=== PATIENT | female | born 1935 | race Asian ===

== ENCOUNTER → 2020-09-28 11:20 | Outpatient (CLI) | payer MEDICARE, OTHER, SELFPAY ==
[2020-09-28 12:23] LABS: BUN Creatinine Ratio 21.7 (6-22); Blood Urea Nitrogen 18 mg/dL (7-17); Calcium 9.8 mg/dL (8.4-10.2); Carbon Dioxide 26 mmol/L (22-32); Chloride 98 mmol/L (98-107); Estimated Glomerular Filt Rate > 60.0 mL/min (>60); Glucose 114 mg/dL (80-110); HEMOLYSIS < 15 (0-50); Potassium 4.5 mmol/L (3.4-5.1); Sodium 133 mmol/L (137-145)
== END ==
PROVIDERS: Referring Provider Internal Medicine Cardiovascular Disease; Visit Provider Internal Medicine Cardiovascular Disease
DX: I10 Essential (primary) hypertension (principal)
CPT/HCPCS: 36415; 80048

== ENCOUNTER 2024-07-23 10:40 | Emergency (ER) | payer MEDICARE, OTHER, SELFPAY ==
[2024-07-23] VITALS (19 sets, daily range): BP systolic 140–167; BP diastolic 56–72; PULSE 87–93; RESP 14–22; TEMP 36.9–37.1; O2SAT 92–100; BMI 24.5
--- NOTE | 2024-07-23 10:49 | ED_ITS ---
HPI - General Adult General Chief complaint: Fall Stated complaint: Found on the floor maybe 5-8 hours Time Seen by Provider: 07/23/24 10:47 History of Present Illness HPI narrative: 88-year-old female comes into the ED from home with family for evaluation of unwitnessed fall. Patient with a past medical history of hypertension. According to family patient was found in the floor of the bathroom has been down on the floor for approximately minimum of 5 hours, they state that she was complaining of diffuse weakness over the past few days, states that she normally uses a walker intermittently, however she has been unstable on her feet more often and has been trying to get her to use her walker more frequently. Time of evaluation patient is A&O x4 moving all 4 extremities not complaining of any symptoms, however she states that she does not remember how she got onto the bathroom floor. She has not complaining of any injuries or pain. Not on any blood thinners. Related Data Allergies Allergy/AdvReac Type Severity Reaction Status Date / Time Penicillins Allergy Verified 07/23/24 10:51 Review of Systems Review of Systems Narrative: General: Positive generalized weakness, ground level fall, Denies fever, chills, weight loss HEENT: Denies headache, eye drainage, eye irritation, head trauma, sore throat, voice change Cardiovascular: Denies any chest pain, palpitations, shortness of breath, tachycardia Respiratory: Denies any shortness of breath, cough, wheeze, stridor GI/: Denies any abdominal pain, nausea, vomiting, diarrhea, bright red blood per rectum, melanotic stools, urinary frequency, urinary retention, dysuria, hematuria MSK: Denies any joint pain, muscle pains, swelling Skin: Denies any rashes, lesions, discoloration Neuro: Positive lightheadedness, Denies any headache, fainting, weakness Psych: Denies SI/HI Patient History Social History Smoking Status: Unknown if ever smoked Exam Narrative Exam Narrative: General: Cooperative, comfortable, well-developed, not in acute distress HEENT: Normocephalic, atraumatic, PERRLA, normal sclera, eyelids normal, Neck: Active full range of motion, atraumatic Chest: Normal to inspection, negative crepitus, no overlying erythema ecchymosis Respiratory: Normal respiratory effort, not in acute respiratory distress, clear to auscultation bilaterally negative cough, wheeze, tachypnea, rhonchi, rales Cardiology: Regular rate rhythm negative gallop, murmur, rubs GI/: Normal to inspection, soft, nonrigid, no tenderness to palpation, exam deferred MSK: Full range of active range of motion of all 4 extremities, atraumatic, no tenderness to palpation of any bony prominences Skin: No rashes lesions noted Neuro: Alert awake oriented x3, moves all 4 extremities spontaneously, cranial nerves intact, able to answer all questions appropriately follows commands appropriately, NIH of 0 Psych: Cooperative, negative suicidal or homicidal ideations Initial Vital Signs Initial Vital Signs: Vital Signs Temperature 98.7 F 07/23/24 10:41 Pulse Rate 91 H 07/23/24 10:41 Respiratory Rate 14 07/23/24 10:41 Blood Pressure 146/67 H 07/23/24 10:41 Pulse Oximetry 94 07/23/24 10:41 Oxygen Delivery Method Room Air 07/23/24 10:41 Course Orders Ordered: ED Orders 07/23/24 10:49 XR chest 1V Stat EKG-12 Lead Stat 07/23/24 10:55 CK [Creatine Kinase] Stat Complete Blood Count AUTO DIFF Stat Comprehensive Metabolic Panel Stat Lactate (Lactic Acid) Stat Lipase Stat MAG [Magnesium] Stat PTT Partial Thromboplastin Karthikeyan Stat Prothrombin Time INR Stat Troponin & CK Cardiac Panel Stat 07/23/24 10:57 CT angio head and neck Stat CT head/brain wo con Stat 07/23/24 11:21 Urine Microscopic Stat 07/23/24 11:26 Covid-19 + FLU A/B + RSV - PCR Stat 07/23/24 13:15 Trop I [Troponin I] Routine Discontinued Medications Sodium Chloride (Normal Saline 0.9%) 1,000 mls @ 1,000 mls/hr IV BOLUS ONE Stop: 07/23/24 12:20 Last Infusion: 07/23/24 12:51 Dose: Infused Documented By: Admin: 07/23/24 11:39 Dose: 1,000 mls/hr Documented By: BERONICA Vital Signs Vital signs: Vital Signs - 8 hr 07/23/24 10:41 07/23/24 10:48 07/23/24 10:48 Temperature 98.7 F Pulse Rate 91 H 89 Pulse Rate [Orthostatic Lying] Pulse Rate [Orthostatic Sitting] Pulse Rate [Orthostatic Standing] Respiratory Rate 14 Blood Pressure 146/67 H 146/67 H Blood Pressure [Orthostatic Lying] Blood Pressure [Orthostatic Sitting] Blood Pressure [Orthostatic Standing] Pulse Oximetry 94 99 Oxygen Delivery Method Room Air 07/23/24 11:00 07/23/24 11:00 07/23/24 11:25 Temperature Pulse Rate 87 Pulse Rate [Orthostatic Lying] Pulse Rate [Orthostatic Sitting] Pulse Rate [Orthostatic Standing] Respiratory Rate 18 Blood Pressure 141/57 H 167/72 H Blood Pressure [Orthostatic Lying] Blood Pressure [Orthostatic Sitting] Blood Pressure [Orthostatic Standing] Pulse Oximetry 100 Oxygen Delivery Method 07/23/24 11:25 07/23/24 11:30 07/23/24 11:30 Temperature Pulse Rate 91 H 87 Pulse Rate [Orthostatic Lying] Pulse Rate [Orthostatic Sitting] Pulse Rate [Orthostatic Standing] Respiratory Rate 16 17 Blood Pressure 148/68 H Blood Pressure [Orthostatic Lying] Blood Pressure [Orthostatic Sitting] Blood Pressure [Orthostatic Standing] Pulse Oximetry 99 99 Oxygen Delivery Method 07/23/24 12:02 07/23/24 12:04 07/23/24 12:04 Temperature Pulse Rate 90 91 H Pulse Rate [Orthostatic Lying] Pulse Rate [Orthostatic Sitting] Pulse Rate [Orthostatic Standing] Respiratory Rate 17 Blood Pressure 148/66 H Blood Pressure [Orthostatic Lying] Blood Pressure [Orthostatic Sitting] Blood Pressure [Orthostatic Standing] Pulse Oximetry 92 97 Oxygen Delivery Method 07/23/24 12:30 07/23/24 13:16 07/23/24 13:17 Temperature Pulse Rate 90 92 H 91 H Pulse Rate [Orthostatic Lying] Pulse Rate [Orthostatic Sitting] Pulse Rate [Orthostatic Standing] Respiratory Rate 17 15 Blood Pressure Blood Pressure [Orthostatic Lying] Blood Pressure [Orthostatic Sitting] Blood Pressure [Orthostatic Standing] Pulse Oximetry 99 100 100 Oxygen Delivery Method 07/23/24 13:17 07/23/24 13:30 07/23/24 13:30 Temperature 98.7 F Pulse Rate 90 Pulse Rate [Orthostatic Lying] Pulse Rate [Orthostatic Sitting] Pulse Rate [Orthostatic Standing] Respiratory Rate 19 Blood Pressure 159/67 H 142/64 H Blood Pressure [Orthostatic Lying] Blood Pressure [Orthostatic Sitting] Blood Pressure [Orthostatic Standing] Pulse Oximetry 100 Oxygen Delivery Method Room Air 07/23/24 13:40 07/23/24 13:54 07/23/24 13:54 Temperature Pulse Rate 91 H Pulse Rate [Orthostatic Lying] 91 H Pulse Rate [Orthostatic Sitting] 92 H Pulse Rate [Orthostatic Standing] 93 H Respiratory Rate 17 Blood Pressure 145/63 H Blood Pressure [Orthostatic Lying] 145/63 H Blood Pressure [Orthostatic Sitting] 140/63 Blood Pressure [Orthostatic Standing] 142/65 H Pulse Oximetry 100 Oxygen Delivery Method Room Air 07/23/24 13:57 07/23/24 13:57 07/23/24 13:58 Temperature Pulse Rate 93 H 93 H Pulse Rate [Orthostatic Lying] Pulse Rate [Orthostatic Sitting] Pulse Rate [Orthostatic Standing] Respiratory Rate 18 15 Blood Pressure 140/63 Blood Pressure [Orthostatic Lying] Blood Pressure [Orthostatic Sitting] Blood Pressure [Orthostatic Standing] Pulse Oximetry 99 100 Oxygen Delivery Method 07/23/24 13:58 Temperature Pulse Rate Pulse Rate [Orthostatic Lying] Pulse Rate [Orthostatic Sitting] Pulse Rate [Orthostatic Standing] Respiratory Rate Blood Pressure 142/65 H Blood Pressure [Orthostatic Lying] Blood Pressure [Orthostatic Sitting] Blood Pressure [Orthostatic Standing] Pulse Oximetry Oxygen Delivery Method Medical Decision Making Differential Diagnosis Differential Diagnosis: Closed head injury, cervical neck fracture, CVA, electrolyte abnormality, Lab Data 07/23/24 10:55 07/23/24 10:55 Labs: Lab Results 07/23/24 07/23/24 07/23/24 Range/Units 10:55 10:55 11:21 WBC 14.7 H (4.5-11.0) X10^3/uL RBC 4.30 (4.0-5.2) X10^6/uL Hgb 12.6 (12.0-16.0) g/dL Hct 36.8 (36-46) % MCV 85.6 (80-100) fL MCH 29.2 (26-34) PG MCHC 34.1 (30-36) % RDW 13.7 (11.6-14.8) % Plt Count 264 (150-400) X10^3/uL Neut % (Auto) 89.6 H (50-75) % Lymph % (Auto) 5.0 L (25-40) % Kerr % (Auto) 5.2 (3-14) % Eos % (Auto) 0.0 L (2-4) % Baso % (Auto) 0.2 (0-2) % Neut # (Auto) 37730 H (7567-3259) /uL Lymph # (Auto) 700 L (7949-3712) /uL Kerr # (Auto) 800 (0-900) /uL Eos # (Auto) 0 (0-450) /uL Baso # (Auto) 0 (0-100) /uL PT 10.7 (9.4-12.5) SECONDS INR 0.9 (0.9-1.3) APTT 23 L (25.1-36.5) SECONDS Sodium 129 L (137-145) mmol/L Potassium 4.1 (3.4-5.1) mmol/L Chloride 95 L (98-107) mmol/L Carbon Dioxide 24 (22-32) mmol/L BUN 16 (7-17) mg/dL Creatinine 0.69 (0.52-1.04) mg/dL Estimated GFR > 60 (>60) mL/min BUN/Creatinine Ratio 23.2 H (6-22) Glucose 118 H (80-110) mg/dL Lactate 1.1 (0.7-2.1) mmol/L Calcium 9.4 (8.4-10.2) mg/dL Magnesium 2.0 (1.6-2.3) mg/dL Total Bilirubin 0.7 (0.2-1.3) mg/dL AST 53 H (14-36) IU/L ALT 26 (<35) IU/L Alkaline Phosphatase 70 (38-126) U/L Total Creatine Kinase 883 H 870 H (30-135) U/L Troponin I 0.046 H (0.01-0.034) ng/mL Total Protein 8.0 (6.3-8.2) g/dL Albumin 4.8 (3.5-5.0) g/dL Globulin 3.2 (1.7-4.1) g/dL Albumin/Globulin Ratio 1.5 (1.0-2.8) Lipase 54 (23-300) U/L Urine RBC 1-5/hpf (0-5/HPF) Urine WBC 0-1/hpf (0-5/HPF) Ur Squamous Epith Cells None seen (0-5/HPF) Urine Bacteria None seen (None) Ur Culture Indicated? Cult not indicated Vol Urine Centrifuged 10ml (spun) SARS-CoV-2 (PCR) (Negative) Influenza A (RT-PCR) (NEGATIVE) Influenza B (RT-PCR) (NEGATIVE) RSV (PCR) (Negative) 07/23/24 07/23/24 Range/Units 11:26 13:15 WBC (4.5-11.0) X10^3/uL RBC (4.0-5.2) X10^6/uL Hgb (12.0-16.0) g/dL Hct (36-46) % MCV (80-100) fL MCH (26-34) PG MCHC (30-36) % RDW (11.6-14.8) % Plt Count (150-400) X10^3/uL Neut % (Auto) (50-75) % Lymph % (Auto) (25-40) % Kerr % (Auto) (3-14) % Eos % (Auto) (2-4) % Baso % (Auto) (0-2) % Neut # (Auto) (6969-4458) /uL Lymph # (Auto) (2846-4633) /uL Kerr # (Auto) (0-900) /uL Eos # (Auto) (0-450) /uL Baso # (Auto) (0-100) /uL PT (9.4-12.5) SECONDS INR (0.9-1.3) APTT (25.1-36.5) SECONDS Sodium (137-145) mmol/L Potassium (3.4-5.1) mmol/L Chloride (98-107) mmol/L Carbon Dioxide (22-32) mmol/L BUN (7-17) mg/dL Creatinine (0.52-1.04) mg/dL Estimated GFR (>60) mL/min BUN/Creatinine Ratio (6-22) Glucose (80-110) mg/dL Lactate (0.7-2.1) mmol/L Calcium (8.4-10.2) mg/dL Magnesium (1.6-2.3) mg/dL Total Bilirubin (0.2-1.3) mg/dL AST (14-36) IU/L ALT (<35) IU/L Alkaline Phosphatase (38-126) U/L Total Creatine Kinase (30-135) U/L Troponin I 0.045 H (0.01-0.034) ng/mL Total Protein (6.3-8.2) g/dL Albumin (3.5-5.0) g/dL Globulin (1.7-4.1) g/dL Albumin/Globulin Ratio (1.0-2.8) Lipase (23-300) U/L Urine RBC (0-5/HPF) Urine WBC (0-5/HPF) Ur Squamous Epith Cells (0-5/HPF) Urine Bacteria (None) Ur Culture Indicated? Vol Urine Centrifuged SARS-CoV-2 (PCR) Negative (Negative) Influenza A (RT-PCR) Flu a negative (NEGATIVE) Influenza B (RT-PCR) Flu b negative (NEGATIVE) RSV (PCR) Negative (Negative) Urine Dip Bedside Urine Glucose Negative Bedside Urine Bilirubin - Negative Bedside Urine Ketone - Negative Urine Specific [place] 1.015 Bedside Urine Occult Blood + Bedside Urine pH 7.0 Bedside Urine Protein - Negative Bedside Urine Urobilinogen - Negative Bedside Urine Nitrite - Negative Bedside Urine Leukocytes - Negative Esterase Point of care testing: Urine Dip Bedside Urine Glucose Negative Bedside Urine Bilirubin - Negative Bedside Urine Ketone - Negative Urine Specific [place] 1.015 Bedside Urine Occult Blood + Bedside Urine pH 7.0 Bedside Urine Protein - Negative Bedside Urine Urobilinogen - Negative Bedside Urine Nitrite - Negative Bedside Urine Leukocytes - Negative Esterase Imaging Data Chest x-ray: Radiologist's Impression: [place] [address] XRay Report Signed Patient: Ronna Siddiqui MR#: [id number] : 1935 Acct:[id number] Age/Sex: 88 / F Date of Service: 07/23/24 Loc: ED Accession Number: [id number] Procedure: XR chest 1V Ordering Provider: Asif Rosado D.O. PROCEDURE: XR CHEST 1V INDICATIONS: fall TECHNIQUE: One view of the chest was acquired. COMPARISON: None. FINDINGS: Surgical changes and devices: None. Lungs and pleura: Lungs are clear. No pleural effusions or pneumothorax. Mediastinum: Mediastinal contours appear normal. Heart size is normal. Bones and chest wall: No suspicious bony lesions. Overlying soft tissues appear unremarkable. IMPRESSION: No acute cardiopulmonary abnormality is seen. CT scan - head: Radiologist's Impression: [address] [address] [address] Scan Report Signed Patient: Ronna Siddiqui MR#: [id number] : 1935 Acct:[id number] Age/Sex: 88 / F Date of Service: 07/23/24 Loc: ED Accession Number: [id number] Procedure: CT head/brain wo con Ordering Provider: Asif Rosado D.O. PROCEDURE: CT HEAD/BRAIN WO CON INDICATIONS: syncope TECHNIQUE: Noncontrast 4.5 mm thick angled axial sections acquired from the foramen magnum to the vertex, with coronal and sagittal reformats. For radiation dose reduction, the following was used: automated exposure control, adjustment of mA and/or kV according to patient size. COMPARISON: [facility], CT, CT ANGIO HEAD AND NECK, 07/23/2024, 11:47. FINDINGS: Image quality: Diagnostic. CSF spaces: Basal cisterns are patent. No extra-axial fluid collections. The ventricles are symmetric in size and shape. Brain: No intracranial bleeds or masses. There is cerebral volume loss for age, with resultant ventricular and sulcal prominence. There are periventricular and deep white matter chronic small vessel ischemic changes. There is intracranial internal carotid artery atherosclerosis. Skull and face: Calvarium and visualized facial bones appear intact, without suspicious lesions. Sinuses: Visualized sinuses and mastoids are clear. IMPRESSION: No acute intracranial pathology. CTA - brain/neck: Radiologist's Impression: [address] [address] [address] Scan Report Signed Patient: Ronna Siddiqui MR#: [id number] : 1935 Acct:[id number] Age/Sex: 88 / F Date of Service: 07/23/24 Loc: ED Accession Number: [id number] Procedure: CT angio head and neck Ordering Provider: Asif Rosado D.O. PROCEDURE: CT ANGIO HEAD AND NECK INDICATIONS: syncope / dizzy TECHNIQUE: After the administration of intravenous contrast, 1 mm thick sections acquired from the aortic arch through the [place]. 3-dimensional vxfusyb-xxnfkjvwx-bbebfymntt (MIP) and/or volume rendering reformats were acquired of the central intracranial vasculature and neck separately. For radiation dose reduction, the following was used: automated exposure control, adjustment of mA and/or kV according to patient size. COMPARISON: None. FINDINGS: Image quality: Diagnostic. BRAIN: CSF spaces: Ventricles are normal in size and shape. Basal cisterns are patent. No extra-axial fluid collections. Brain: No significant abnormality of the brain can be seen. Skull and face: Calvarium and facial bones appear intact, without suspicious lesions. Orbits appear normal. Sinuses: Sinuses and mastoids are clear. HEAD CT ANGIOGRAPHY: Anterior circulation: Intracranial internal carotid arteries are normal in size and flow. The flow within the paired anterior cerebral arteries is normal and symmetric. The flow within the middle cerebral arteries is normal and symmetric. The anterior communicating artery is seen. No aneurysms are seen. Posterior circulation: Visualized portions of the vertebral arteries demonstrate normal caliber, left side dominant, and join to form a normal appearing basilar artery. Flow within the posterior cerebral arteries is normal and symmetric. No aneurysms are seen. NECK CT ANGIOGRAPHY: Carotid system: The great vessels demonstrate a conventional anatomy as they arise from the aortic arch. The origins of the common carotid arteries appear patent. The common carotid arteries demonstrate normal caliber and courses. The bifurcation regions are both widely patent. The internal carotid arteries demonstrate normal calibers and courses. Posterior circulation: The origins of the vertebral arteries both appear widely patent. The more superior extracranial portions of both vertebral arteries also demonstrate normal courses and calibers. They join to form a normal appearing basilar artery. Soft tissues: Visualized neck soft tissues demonstrate no suspicious abnormalities. Bones: No suspicious bony lesions. Visualized cervical spine appears normally aligned. IMPRESSION: No significant intracranial arterial abnormality is seen. No significant abnormality is seen within the arteries of the neck. ECG Data Interpretation: EKG interpreted by ED physician sinus at 88 beats per minute QTC [address] changes no STEMI MDM Narrative Medical decision making narrative: 88-year-old female history of hypertension presents with family for evaluation of unwitnessed fall. They state that they last saw her last night, saw her this morning and she was on the floor unable to get up. Patient states that she remembers going to the bathroom but does not remember how she got the floor. According to family patient is at baseline, but has been complaining of increased weakness. Intermittently uses a walker but has had worsening gait instability and has been trying to get the patient to use her walker more consistently. Patient was able to stand and ambulate with her walker at her baseline here in the emergency department. Patient had chest x-ray unremarkable for cardiopulmonary abnormalities. Patient had head CT head CTA head and neck without any acute findings. Lab work was consistent with a slightly elevated CK at 870, initial troponin elevated at 0.046 with repeat 0.045, creatinine normal at 0.69. Patient was able to stand ambulate here with a walker at her baseline. Patient with a [place] syncope 0, I did offer admission to the hospital given unwitnessed fall however family and patient prefer to follow up outpatient with PCP and Cardiology. Strict return precautions given they verbalized understanding of this and agrees to being discharged home with outpatient follow up Discharge Plan Departure Patient Disposition: Home Clinical Impression: Ground-level fall, Rhabdomyolysis Instructions: DI for Rhabdomyolysis Activity Restrictions/Additional Instructions: Follow up with Cardiology and primary care in outpatient setting Please read the discharge instructions sheet carefully and bring all papers to all doctor follow-up visits, as it may contain information that your doctor may want to see. Disease processes change and evolve, if your symptoms worsen or if you develop any new symptoms that are concerning to you please return for evaluation. Your evaluation today does not show any evidence of any life- threatening/serious illnesses requiring admission to the hospital or surgery. Please follow-up with your doctor for re-evaluation in approximately 1 day. Seek immediate medical attention for any worrisome symptoms. *If you do not have a primary care provider please contact the [facility] Resource line at [phone]. They will ask some questions about your medical history and help get you set up with a doctor in the community. Stand Alone Forms: Patient Portal/API/Survey
--- NOTE | 2024-07-23 10:49 | EKG_ITS ---
[address] [address] Test Date: 2024-07-23 Pat Name: Ronna Siddiqui Department: [facility] Room: Gender: Female Machine Presser: GISELL : 1935 Requested By: Order Number: [id number] Reading MD: Kem Gunter Measurements Intervals [place] Rate: 88 P: 74 DC: 162 QRS: 42 QRSD: 72 T: 57 QT: 356 QTc: 430 Interpretive Statements Normal sinus rhythm Electronically Signed On 07-23-2024 18:00:09 PST by Kem Gunter
--- NOTE | 2024-07-23 10:49 | DI.RAD.S_ITS ---
PROCEDURE: XR CHEST 1V INDICATIONS: fall TECHNIQUE: One view of the chest was acquired. COMPARISON: None. FINDINGS: Surgical changes and devices: None. Lungs and pleura: Lungs are clear. No pleural effusions or pneumothorax. Mediastinum: Mediastinal contours appear normal. Heart size is normal. Bones and chest wall: No suspicious bony lesions. Overlying soft tissues appear unremarkable. IMPRESSION: No acute cardiopulmonary abnormality is seen. Dictated by: Juan Taylor M.D. on 07/23/2024 at 11:26 Approved by: Juan Taylor M.D. on 07/23/2024 at 11:26
--- NOTE | 2024-07-23 10:57 | DI.CT.S_ITS ---
PROCEDURE: CT ANGIO HEAD AND NECK INDICATIONS: syncope / dizzy TECHNIQUE: After the administration of intravenous contrast, 1 mm thick sections acquired from the aortic arch through the [place]. 3-dimensional jvqnort-smkgcfxjp-cakdjvgdda (MIP) and/or volume rendering reformats were acquired of the central intracranial vasculature and neck separately. For radiation dose reduction, the following was used: automated exposure control, adjustment of mA and/or kV according to patient size. COMPARISON: None. FINDINGS: Image quality: Diagnostic. BRAIN: CSF spaces: Ventricles are normal in size and shape. Basal cisterns are patent. No extra-axial fluid collections. Brain: No significant abnormality of the brain can be seen. Skull and face: Calvarium and facial bones appear intact, without suspicious lesions. Orbits appear normal. Sinuses: Sinuses and mastoids are clear. HEAD CT ANGIOGRAPHY: Anterior circulation: Intracranial internal carotid arteries are normal in size and flow. The flow within the paired anterior cerebral arteries is normal and symmetric. The flow within the middle cerebral arteries is normal and symmetric. The anterior communicating artery is seen. No aneurysms are seen. Posterior circulation: Visualized portions of the vertebral arteries demonstrate normal caliber, left side dominant, and join to form a normal appearing basilar artery. Flow within the posterior cerebral arteries is normal and symmetric. No aneurysms are seen. NECK CT ANGIOGRAPHY: Carotid system: The great vessels demonstrate a conventional anatomy as they arise from the aortic arch. The origins of the common carotid arteries appear patent. The common carotid arteries demonstrate normal caliber and courses. The bifurcation regions are both widely patent. The internal carotid arteries demonstrate normal calibers and courses. Posterior circulation: The origins of the vertebral arteries both appear widely patent. The more superior extracranial portions of both vertebral arteries also demonstrate normal courses and calibers. They join to form a normal appearing basilar artery. Soft tissues: Visualized neck soft tissues demonstrate no suspicious abnormalities. Bones: No suspicious bony lesions. Visualized cervical spine appears normally aligned. IMPRESSION: No significant intracranial arterial abnormality is seen. No significant abnormality is seen within the arteries of the neck. Any quantitative measurements of stenosis were performed using NASCET criteria. Dictated by: Juan Taylor M.D. on 07/23/2024 at 12:10 Approved by: Juan Taylor M.D. on 07/23/2024 at 12:11
--- NOTE | 2024-07-23 10:57 | DI.CT.S_ITS ---
PROCEDURE: CT HEAD/BRAIN WO CON INDICATIONS: syncope TECHNIQUE: Noncontrast 4.5 mm thick angled axial sections acquired from the foramen magnum to the vertex, with coronal and sagittal reformats. For radiation dose reduction, the following was used: automated exposure control, adjustment of mA and/or kV according to patient size. COMPARISON: [facility], CT, CT ANGIO HEAD AND NECK, 07/23/2024, 11:47. FINDINGS: Image quality: Diagnostic. CSF spaces: Basal cisterns are patent. No extra-axial fluid collections. The ventricles are symmetric in size and shape. Brain: No intracranial bleeds or masses. There is cerebral volume loss for age, with resultant ventricular and sulcal prominence. There are periventricular and deep white matter chronic small vessel ischemic changes. There is intracranial internal carotid artery atherosclerosis. Skull and face: Calvarium and visualized facial bones appear intact, without suspicious lesions. Sinuses: Visualized sinuses and mastoids are clear. IMPRESSION: No acute intracranial pathology. Dictated by: Juan Taylor M.D. on 07/23/2024 at 12:12 Approved by: Juan Taylor M.D. on 07/23/2024 at 12:12
[2024-07-23 11:03] LABS: Add Manual Diff / Slide Review NO; Basophils Absolute Auto 0 /uL (0-100); Basophils Percent Auto 0.2 % (0-2); Eosinophils Absolute Auto 0 /uL (0-450); Hematocrit 36.8 % (36-46); Hemoglobin 12.6 g/dL (12.0-16.0); Lymphocytes Absolute Auto 700 /uL (1100-4500); Mean Corpuscular HGB Conc 34.1 % (30-36); Mean Corpuscular Hemoglobin 29.2 PG (26-34); Mean Corpuscular Volume 85.6 fL (80-100); Monocytes Absolute Auto 800 /uL (0-900); Monocytes Percent Auto 5.2 % (3-14); Neutrophils Absolute Auto 13200 /uL (1500-7000); Neutrophils Percent Auto 89.6 % (50-75); Platelet Count 264 X10^3/uL (150-400); Red Cell Distribution Width 13.7 % (11.6-14.8); White Blood Cell Count 14.7 X10^3/uL (4.5-11.0)
[2024-07-23 11:13] LABS: INR 0.9 (0.9-1.3); Prothrombin Time 10.7 SECONDS (9.4-12.5)
[2024-07-23 11:15] LABS: PTT Partial Thromboplastin Tim 23 SECONDS (25.1-36.5)
[2024-07-23 11:18] LABS: Alanine Aminotransferase 26 IU/L (<35); Albumin 4.8 g/dL (3.5-5.0); Albumin Globulin Ratio 1.5 (1.0-2.8); Alkaline Phosphatase 70 U/L (38-126); Aspartate Aminotransferase 53 IU/L (14-36); BUN Creatinine Ratio 23.2 (6-22); Bilirubin Total 0.7 mg/dL (0.2-1.3); Blood Urea Nitrogen 16 mg/dL (7-17); Calcium 9.4 mg/dL (8.4-10.2); Carbon Dioxide 24 mmol/L (22-32); Chloride 95 mmol/L (98-107); Creatine Kinase 870 U/L (30-135); Creatine Kinase 883 U/L (30-135); Estimated Glomerular Filt Rate > 60 mL/min (>60); Globulin 3.2 g/dL (1.7-4.1); Glucose 118 mg/dL (80-110); HEMOLYSIS 16 (0-50); Lipase 54 U/L (23-300); Potassium 4.1 mmol/L (3.4-5.1); Sodium 129 mmol/L (137-145)
[2024-07-23 11:19] LABS: Lactate (Lactic Acid) 1.1 mmol/L (0.7-2.1)
[2024-07-23 11:29] LABS: Troponin I 0.046 ng/mL (0.01-0.034)
[2024-07-23] MEDS: SODIUM CHLORIDE 0.9% 1,000 ML 1000 ML IV (11:39)
[2024-07-23 11:54] LABS: Bacteria Urine None Seen; RBC Urine 1-5/HPF (0-5/HPF); Squamous Epithelial Cell Urine None Seen (0-5/HPF); Urine Volume 10mL (spun); WBC Urine 0-1/HPF (0-5/HPF)
[2024-07-23 11:55] LABS: Culture Indicated Urine Cult Not Indicated
[2024-07-23 12:10] LABS: Influenza A - CEPHEID Flu A NEGATIVE (NEGATIVE); Influenza B - CEPHEID Flu B NEGATIVE (NEGATIVE); Respiratory Syncytial Virus Negative (Negative)
[2024-07-23 12:11] LABS: COVID-19 CEPHEID 4-PLEX PCR Negative (Negative)
[2024-07-23 14:05] LABS: Troponin I 0.045 ng/mL (0.01-0.034)
--- NOTE | 2024-07-23 14:14 | PC.NURSE ---
gate more steady, ambulated to restroom, gate belt in place, using walker with only standby assistance/minimal x 1 staff member. Patient denies any dizziness with standing and walking to restroom. 1L NS completed and patient is sipping on water. Orthostatic VS documented in flowsheet.
== END 2024-07-23 15:10 | disposition home or self-care (01) ==
PROVIDERS: Emergency Provider Student in an Organized Health Care Education/Training Program
DX: M62.82 Rhabdomyolysis (principal); R55 Syncope and collapse; W18.30XA Fall on same level, unspecified, initial encounter; R53.1 Weakness
CPT/HCPCS: 0241U; 36415; 70450; 70496; 70498; 71045; 80053; 81003; 81015; 82550; 82962; 83605; 83690; 83735; 84484; 85025; 85610; 85730; 93005; 96360; 99284; Q9967

== ENCOUNTER 2024-07-26 19:43 | Emergency (ER) | payer MEDICARE, OTHER, SELFPAY ==
[2024-07-26] VITALS (12 sets, daily range): BP systolic 134–148; BP diastolic 60–67; PULSE 79–96; RESP 18–25; TEMP 37.2–37.6; O2SAT 96–99; BMI 22.1
--- NOTE | 2024-07-26 19:59 | DI.RAD.S_ITS ---
PROCEDURE: XR CHEST 1V INDICATIONS: Shortness of breath TECHNIQUE: One view of the chest was acquired. COMPARISON: [facility], CR, XR CHEST 1V, 07/23/2024, 10:54. FINDINGS: Surgical changes and devices: None. Lungs and pleura: Lungs are clear. No pleural effusions or pneumothorax. Mediastinum: Mediastinal contours appear normal. Heart size is normal. Aortic arch is calcified indicating atherosclerosis. Bones and chest wall: No suspicious bony lesions. Overlying soft tissues appear unremarkable. IMPRESSION: No acute cardiopulmonary abnormality is seen. Approved by: Nicol Garibay M.D.,Ph.D. on 07/26/2024 at 21:14
--- NOTE | 2024-07-26 20:07 | EKG_ITS ---
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
[2024-07-26 20:27] LABS: Add Manual Diff / Slide Review NO; Basophils Absolute Auto 0 /uL (0-100); Basophils Percent Auto 0.5 % (0-2); Eosinophils Absolute Auto 100 /uL (0-450); Eosinophils Percent Auto 1.2 % (2-4); Hematocrit 32.2 % (36-46); Hemoglobin 11.1 g/dL (12.0-16.0); Lymphocytes Absolute Auto 400 /uL (1100-4500); Lymphocytes Percent Auto 6.4 % (25-40); Mean Corpuscular HGB Conc 34.4 % (30-36); Mean Corpuscular Hemoglobin 29.5 PG (26-34); Mean Corpuscular Volume 85.8 fL (80-100); Monocytes Absolute Auto 700 /uL (0-900); Neutrophils Absolute Auto 4700 /uL (1500-7000); Neutrophils Percent Auto 79.9 % (50-75); Platelet Count 220 X10^3/uL (150-400); Red Blood Cell Count 3.75 X10^6/uL (4.0-5.2); Red Cell Distribution Width 13.9 % (11.6-14.8); White Blood Cell Count 5.9 X10^3/uL (4.5-11.0)
[2024-07-26 20:45] LABS: Alanine Aminotransferase 29 IU/L (<35); Albumin 4.4 g/dL (3.5-5.0); Albumin Globulin Ratio 1.5 (1.0-2.8); Alkaline Phosphatase 54 U/L (38-126); Aspartate Aminotransferase 46 IU/L (14-36); BUN Creatinine Ratio 22.9 (6-22); Bilirubin Total 0.6 mg/dL (0.2-1.3); Blood Urea Nitrogen 16 mg/dL (7-17); Calcium 8.8 mg/dL (8.4-10.2); Carbon Dioxide 23 mmol/L (22-32); Chloride 96 mmol/L (98-107); Estimated Glomerular Filt Rate > 60 mL/min (>60); Glucose 106 mg/dL (80-110); HEMOLYSIS 22 (0-50); Lactate (Lactic Acid) 0.7 mmol/L (0.7-2.1); Potassium 4.2 mmol/L (3.4-5.1); Prothrombin Time 11.2 SECONDS (9.4-12.5); Sodium 126 mmol/L (137-145); Total Protein 7.4 g/dL (6.3-8.2)
--- NOTE | 2024-07-26 20:45 | ED_ITS ---
HPI - General Adult General Chief complaint: Weakness Stated complaint: disoriented, dizzy, SOB Time Seen by Provider: 07/26/24 20:17 Source: patient and family Mode of arrival: Wheelchair History of Present Illness HPI narrative: 88-year-old female has ongoing generalized weakness that seems worse than a couple of days ago. Patient was seen 2 days ago, after fall and was on the floor for 8 hours, diagnosed with rhabdomyolysis, was given IV fluids, sent home. Having ongoing weakness, unable to get up from the commode earlier today. No new fall known. No fevers or chills. No chest pain or shortness of breath. No headache, neck pain, photophobia symptoms. No dysuria or frequency of urination. No vomiting or diarrhea. No red or black stools. No focal weakness to face arm or leg. No focal numbness to face arm or leg. Related Data Previous Rx's Medication Instructions Recorded nirmatrelvir 300 mg (150 mg See Rx Instructions PO .COMPLEX 07/26/24 x2)-ritonavir 100 mg tablet,dose #30 ea pack (Paxlovid) Allergies Allergy/AdvReac Type Severity Reaction Status Date / Time Penicillins Allergy Verified 07/26/24 19:46 Patient History Social History Smoking Status: Unknown if ever smoked Smoking Status: Unknown if ever smoked Exam Narrative Exam Narrative: GENERAL: Well-developed patient, in mild distress. HEAD: Atraumatic. Normocephalic. EYES: Pupils equal round and reactive. Extraocular motions intact. No scleral icterus. No injection or drainage. ENT: Nose without bleeding, purulent drainage. Throat without erythema, tonsillar hypertrophy or exudate. Airway patent. NECK: Trachea midline. Non tender CARDIOVASCULAR: Regular rate and rhythm without murmurs, gallops, or rubs. RESPIRATORY: Clear to auscultation. Breath sounds equal bilaterally. No wheezes, rales, or rhonchi. GASTROINTESTINAL: Abdomen soft, non-tender, nondistended. EXTREMITIES: No edema or joint tenderness. BACK: Nontender without deformity or crepitance. No flank tenderness. NEURO: AOx3. Motor functions grossly nonfocal SKIN: No rash or erythema of visible areas Initial Vital Signs Initial Vital Signs: Vital Signs Temperature 99.7 F H 07/26/24 19:46 Pulse Rate 80 07/26/24 19:46 Respiratory Rate 18 07/26/24 19:46 Blood Pressure 134/63 07/26/24 19:46 Pulse Oximetry 98 07/26/24 19:46 Oxygen Delivery Method Room Air 07/26/24 19:46 Course Orders Ordered: ED Orders 07/26/24 19:59 XR chest 1V Stat EKG-12 Lead Stat Measure peak expiratory flow ONCE RT Consult Eval and Treat NOW 07/26/24 20:17 CK [Creatine Kinase] Stat Complete Blood Count AUTO DIFF Stat Comprehensive Metabolic Panel Stat Lactate (Lactic Acid) Stat NT-proBNP (BNP-Adult 18+) Stat Prothrombin Time INR Stat Troponin I Stat 07/26/24 20:48 CT head/brain wo con Stat 07/26/24 21:56 Urinalysis and Microscopic Stat Urine Culture Stat 07/26/24 22:46 Covid-19 + FLU A/B + RSV - PCR Stat Discontinued Medications Sodium Chloride (Normal Saline 0.9%) 1,000 mls @ 1,000 mls/hr IV BOLUS ONE Stop: 07/26/24 23:36 Last Infusion: 07/27/24 00:05 Dose: Infused Documented By: Admin: 07/26/24 22:41 Dose: 1,000 mls/hr Documented By: BARBRA Vital Signs Vital signs: Vital Signs - 8 hr 07/26/24 19:46 07/26/24 20:02 07/26/24 20:05 Temperature 99.7 F H Pulse Rate 80 85 Respiratory Rate 18 Blood Pressure 134/63 146/67 H Pulse Oximetry 98 97 Oxygen Delivery Method Room Air 07/26/24 20:05 07/26/24 20:30 07/26/24 20:30 Temperature Pulse Rate 80 79 Respiratory Rate 18 18 Blood Pressure 134/60 Pulse Oximetry 98 98 Oxygen Delivery Method 07/26/24 21:10 07/26/24 21:11 07/26/24 21:11 Temperature Pulse Rate 91 H 89 Respiratory Rate 21 Blood Pressure 148/67 H Pulse Oximetry 98 Oxygen Delivery Method 07/26/24 21:12 07/26/24 21:30 07/26/24 21:30 Temperature 98.9 F Pulse Rate 86 Respiratory Rate 19 Blood Pressure 138/65 Pulse Oximetry 98 Oxygen Delivery Method 07/26/24 22:00 07/26/24 22:00 07/26/24 22:30 Temperature Pulse Rate 87 87 Respiratory Rate 21 21 Blood Pressure 137/64 Pulse Oximetry 97 99 Oxygen Delivery Method 07/26/24 22:30 07/26/24 23:00 07/26/24 23:00 Temperature Pulse Rate 91 H Respiratory Rate 21 Blood Pressure 143/65 H 143/63 H Pulse Oximetry 96 Oxygen Delivery Method 07/26/24 23:30 07/26/24 23:30 Temperature Pulse Rate 96 H Respiratory Rate 25 H Blood Pressure 147/67 H Pulse Oximetry 98 Oxygen Delivery Method Room Air Medical Decision Making Lab Data Lab results reviewed: Yes I reviewed the patient's lab results. Lab results narrative: White blood cell count 5900, hemoglobin 11.1, platelets 851853, sodium low at 126 with glucose 106. Has had prior low sodium 129 range in the past. BUN creatinine normal. Potassium normal. Liver functions so slight AST elevation, otherwise negative. 07/26/24 20:17 07/26/24 20:17 Labs: Lab Results 07/26/24 07/26/24 07/26/24 Range/Units 20:17 21:56 22:46 WBC 5.9 (4.5-11.0) X10^3/uL RBC 3.75 L (4.0-5.2) X10^6/uL Hgb 11.1 L (12.0-16.0) g/dL Hct 32.2 L (36-46) % MCV 85.8 (80-100) fL MCH 29.5 (26-34) PG MCHC 34.4 (30-36) % RDW 13.9 (11.6-14.8) % Plt Count 220 (150-400) X10^3/uL Neut % (Auto) 79.9 H (50-75) % Lymph % (Auto) 6.4 L (25-40) % [place] % (Auto) 12.0 (3-14) % Eos % (Auto) 1.2 L (2-4) % Baso % (Auto) 0.5 (0-2) % Neut # (Auto) 4700 (4349-6110) /uL Lymph # (Auto) 400 L (2522-5971) /uL [place] # (Auto) 700 (0-900) /uL Eos # (Auto) 100 (0-450) /uL Baso # (Auto) 0 (0-100) /uL PT 11.2 (9.4-12.5) SECONDS INR 1.0 (0.9-1.3) Sodium 126 L (137-145) mmol/L Potassium 4.2 (3.4-5.1) mmol/L Chloride 96 L (98-107) mmol/L Carbon Dioxide 23 (22-32) mmol/L BUN 16 (7-17) mg/dL Creatinine 0.70 (0.52-1.04) mg/dL Estimated GFR > 60 (>60) mL/min BUN/Creatinine Ratio 22.9 H (6-22) Glucose 106 (80-110) mg/dL Lactate 0.7 (0.7-2.1) mmol/L Calcium 8.8 (8.4-10.2) mg/dL Total Bilirubin 0.6 (0.2-1.3) mg/dL AST 46 H (14-36) IU/L ALT 29 (<35) IU/L Alkaline Phosphatase 54 (38-126) U/L Total Creatine Kinase 416 H D (30-135) U/L Troponin I < 0.012 (0.01-0.034) ng/mL NT-Pro-B Natriuret Pep 489 H (<450) pg/mL Total Protein 7.4 (6.3-8.2) g/dL Albumin 4.4 (3.5-5.0) g/dL Globulin 3.0 (1.7-4.1) g/dL Albumin/Globulin Ratio 1.5 (1.0-2.8) Urine Color Yellow Urine Appearance Clear Urine pH 6.0 (4.5-8.0) Ur Specific [place] 1.020 (1.000-1.035) Urine Protein Negative (Negative) Urine Glucose (UA) Negative (Negative) g/dL Urine Ketones 1+ H (NEGATIVE) Urine Occult Blood Trace-intact (Negative) Urine Nitrate Negative (Negative) Urine Bilirubin Negative (NEGATIVE) Urine Urobilinogen 0.2 (0.2) E.U./dL Ur Leukocyte Esterase 1+ H (NEGATIVE) Urine RBC 0-1/hpf (0-5/HPF) Urine WBC 0-1/hpf (0-5/HPF) Ur Squamous Epith Cells 0-1 /hpf (0-5/HPF) Urine Bacteria Occasional (0-1) (None) Ur Culture Indicated? Specimen cultured Vol Urine Centrifuged 10ml (spun) SARS-CoV-2 (PCR) Positive H (Negative) Influenza A (RT-PCR) Flu a negative (NEGATIVE) Influenza B (RT-PCR) Flu b negative (NEGATIVE) RSV (PCR) Negative (Negative) Imaging Data Chest x-ray: Radiologist's Impression: [address] [address] XRay Report Signed Patient: Ronna Siddiqui MR#: [id number] : 1935 Acct:[id number] Age/Sex: 88 / F Date of Service: 07/26/24 Loc: ED Accession Number: [id number] Procedure: XR chest 1V Ordering Provider: Steffen Sarabia MD PROCEDURE: XR CHEST 1V INDICATIONS: Shortness of breath TECHNIQUE: One view of the chest was acquired. COMPARISON: [facility], CR, XR CHEST 1V, 07/23/2024, 10:54. FINDINGS: Surgical changes and devices: None. Lungs and pleura: Lungs are clear. No pleural effusions or pneumothorax. Mediastinum: Mediastinal contours appear normal. Heart size is normal. Aortic arch is calcified indicating atherosclerosis. Bones and chest wall: No suspicious bony lesions. Overlying soft tissues appear unremarkable. IMPRESSION: No acute cardiopulmonary abnormality is seen. Approved by: Nicol Garibay M.D.,Ph.D. on 07/26/2024 at 21:14 CT scan - head: Radiologist's Impression: [address] [address] [address] Scan Report Signed Patient: Ronna Siddiqui MR#: [id number] : 1935 Acct:[id number] Age/Sex: 88 / F Date of Service: 07/26/24 Loc: ED Accession Number: [id number] Procedure: CT head/brain wo con Ordering Provider: Steffen Sarabia MD PROCEDURE: CT HEAD/BRAIN WO CON INDICATIONS: dizzy, weak, age 88 TECHNIQUE: Noncontrast 4.5 mm thick angled axial sections acquired from the foramen magnum to the vertex, with coronal and sagittal reformats. For radiation dose reduction, the following was used: automated exposure control, adjustment of mA and/or kV according to patient size. COMPARISON: [facility], CT, CT HEAD/BRAIN WO CON, 07/23/2024, 11:47. FINDINGS: Image quality: Diagnostic. CSF spaces: Basal cisterns are patent. No extra-axial fluid collections. The ventricles are symmetric in size and shape. Brain: No intracranial bleeds or masses. There is cerebral volume loss for age, with resultant ventricular and sulcal prominence. There are periventricular and deep white matter chronic small vessel ischemic changes. There is intracranial internal carotid artery atherosclerosis. Skull and face: Calvarium and visualized facial bones appear intact, without suspicious lesions. Sinuses: Visualized sinuses and mastoids are clear. IMPRESSION: No acute intracranial pathology. Approved by: Nicol Garibay M.D.,Ph.D. on 07/26/2024 at 21:45 ECG Data Attestation: I personally reviewed and interpreted this ECG as follows: Interpretation: Normal sinus rhythm with rate of 80, no obvious ST segment elevation or depression changes. Some motion artifact septal leads noted. AL 150, QRS 70, QTC 408. MDM Narrative Medical decision making narrative: 88-year-old female with ongoing generalized weakness, seen here couple days ago for the same complaint, had labs showing CPK 800s, given IV fluids, COVID testing at that time negative, was discharged home, still having significant generalized weakness, nonfocal, no known fevers, was unable to get herself up off the commode due to generalized weakness. Afebrile, sirs screen negative. Nonfocal neuro exam. Screening electrolytes unremarkable, chest x-ray negative. CT head showed no acute changes. Urinalysis pending. Repeat CPK 400, decreased from 800 prior visit, IV fluids infused. Urinalysis unremarkable. We will repeat COVID/flu swab today COVID positive today, influenza and RSV negative. Likely the COVID accounts for her generalized weakness. No oxygen requirement, chest x-ray negative, no tachypnea or tachycardia. Unclear if she would meet inpatient criteria. Patient and family interested in trying Paxlovid oral antiviral medication as an outpatient, prescription course sent to her pharmacy, encouraged to start the dose early in the morning and take full 5 days course. Recheck if not improving in the next few days. Return precautions discussed. Discharged home with family per their preference. Discharge Plan Departure Patient Disposition: Home Clinical Impression: Generalized weakness, COVID-19 Activity Restrictions/Additional Instructions: Generalized weakness, recent evaluation here COVID negative at that time, labs showed mildly elevated CPK, possible rhabdomyolysis although mild, IV fluids were given at that time, still having ongoing generalized weakness. No fever on triage. Screening labs today unremarkable, CPK 400 decreased before any further IV fluids which were also given. Chest x-ray unremarkable. Urinalysis negative. Electrolytes unremarkable. Repeat COVID swab today however was positive. This may explain recent the generalized weakness symptoms. No respiratory distress, no oxygen requirement, no pneumonia like changes on chest x-ray. Trial of antiviral at home for now, prescription for Paxlovid regimen sent to your pharmacy, to start tomorrow, for 5 day course. Recheck with your regular doctor if not improving in the next couple of days. Return to this/nearest emergency department for any change worsening symptoms or any concerns prior Prescriptions: New Paxlovid 300 mg (150 mg x 2)-100 mg tablets,dose pack See Rx Instructions .ROUTE .COMPLEX Qty: 30 0RF Rx Instructions: take TWO 150 mg tablets of nirmatrelvir with ONE 100 mg tablet of ritonavir twice daily for 5 days Referrals: Miscellaneous,DoctorMD [Primary Care Provider] - Stand Alone Forms: Patient Portal/API/Survey
--- NOTE | 2024-07-26 20:48 | DI.CT.S_ITS ---
PROCEDURE: CT HEAD/BRAIN WO CON INDICATIONS: dizzy, weak, age 88 TECHNIQUE: Noncontrast 4.5 mm thick angled axial sections acquired from the foramen magnum to the vertex, with coronal and sagittal reformats. For radiation dose reduction, the following was used: automated exposure control, adjustment of mA and/or kV according to patient size. COMPARISON: [facility], CT, CT HEAD/BRAIN WO CON, 07/23/2024, 11:47. FINDINGS: Image quality: Diagnostic. CSF spaces: Basal cisterns are patent. No extra-axial fluid collections. The ventricles are symmetric in size and shape. Brain: No intracranial bleeds or masses. There is cerebral volume loss for age, with resultant ventricular and sulcal prominence. There are periventricular and deep white matter chronic small vessel ischemic changes. There is intracranial internal carotid artery atherosclerosis. Skull and face: Calvarium and visualized facial bones appear intact, without suspicious lesions. Sinuses: Visualized sinuses and mastoids are clear. IMPRESSION: No acute intracranial pathology. Approved by: Nicol Garibay M.D.,Ph.D. on 07/26/2024 at 21:45
[2024-07-26 20:57] LABS: NT-proBNP (BNP-Adult 18+) 489 pg/mL (<450); Troponin I < 0.012 ng/mL (0.01-0.034)
[2024-07-26 22:00] LABS: Appearance Urine UA CLEAR; Bilirubin Urine UA NEGATIVE (NEGATIVE); Color Urine UA YELLOW; Glucose Urine UA NEGATIVE (Negative); Ketones Urine UA 1+ (NEGATIVE); Leukocyte Esterase Urine UA 1+ (NEGATIVE); Nitrite Urine UA NEGATIVE (Negative); Occult Blood Urine UA TRACE-INTACT (Negative); Protein Urine UA NEGATIVE (Negative); Urobilinogen Urine UA 0.2 E.U./dL (0.2)
[2024-07-26 22:39] LABS: Bacteria Urine Occasional (0-1); Culture Indicated Urine Specimen Cultured; RBC Urine 0-1/HPF (0-5/HPF); Squamous Epithelial Cell Urine 0-1 /HPF (0-5/HPF); Urine Volume 10mL (spun); WBC Urine 0-1/HPF (0-5/HPF)
[2024-07-26] MEDS: SODIUM CHLORIDE 0.9% 1,000 ML 1000 ML IV (22:41)
[2024-07-26 22:47] LABS: Creatine Kinase 416 U/L (30-135)
[2024-07-26 23:29] LABS: Influenza A - CEPHEID Flu A NEGATIVE (NEGATIVE); Influenza B - CEPHEID Flu B NEGATIVE (NEGATIVE); Respiratory Syncytial Virus Negative (Negative)
[2024-07-26 23:34] LABS: COVID-19 CEPHEID 4-PLEX PCR POSITIVE (Negative)
== END 2024-07-27 00:23 | disposition home or self-care (01) ==
PROVIDERS: Emergency Provider Emergency Medicine
DX: U07.1 COVID-19 (principal); R42 Dizziness and giddiness; R06.02 Shortness of breath; M62.82 Rhabdomyolysis
CPT/HCPCS: 0241U; 36415; 70450; 71045; 80053; 81001; 82550; 83605; 83880; 84484; 85025; 85610; 87086; 93005; 96360; 99285

== ENCOUNTER → 2024-07-31 10:40 | Outpatient (CLI) | payer MEDICARE, OTHER, SELFPAY ==
[2024-07-31 11:42] LABS: Add Manual Diff / Slide Review NO; Basophils Absolute Auto 0 /uL (0-100); Basophils Percent Auto 0.2 % (0-2); Eosinophils Absolute Auto 0 /uL (0-450); Eosinophils Percent Auto 0.3 % (2-4); Hematocrit 37.3 % (36-46); Hemoglobin 12.8 g/dL (12.0-16.0); Lymphocytes Absolute Auto 1200 /uL (1100-4500); Lymphocytes Percent Auto 28.9 % (25-40); Mean Corpuscular HGB Conc 34.2 % (30-36); Mean Corpuscular Hemoglobin 28.9 PG (26-34); Mean Corpuscular Volume 84.3 fL (80-100); Monocytes Absolute Auto 400 /uL (0-900); Monocytes Percent Auto 9.3 % (3-14); Neutrophils Absolute Auto 2500 /uL (1500-7000); Neutrophils Percent Auto 61.3 % (50-75); Platelet Count 253 X10^3/uL (150-400); Red Blood Cell Count 4.43 X10^6/uL (4.0-5.2); Red Cell Distribution Width 13.6 % (11.6-14.8); White Blood Cell Count 4.2 X10^3/uL (4.5-11.0)
[2024-07-31 12:03] LABS: Alanine Aminotransferase 35 IU/L (<35); Albumin 4.4 g/dL (3.5-5.0); Albumin Globulin Ratio 1.6 (1.0-2.8); Alkaline Phosphatase 55 U/L (38-126); Aspartate Aminotransferase 45 IU/L (14-36); BUN Creatinine Ratio 18.3 (6-22); Bilirubin Total 0.7 mg/dL (0.2-1.3); Blood Urea Nitrogen 13 mg/dL (7-17); Calcium 9.1 mg/dL (8.4-10.2); Carbon Dioxide 27 mmol/L (22-32); Chloride 86 mmol/L (98-107); Creatine Kinase 139 U/L (30-135); Estimated Glomerular Filt Rate > 60 mL/min (>60); Globulin 2.8 g/dL (1.7-4.1); Glucose 135 mg/dL (80-110); HEMOLYSIS < 15 (0-50); Potassium 3.4 mmol/L (3.4-5.1); Sodium 123 mmol/L (137-145); Total Protein 7.2 g/dL (6.3-8.2)
[2024-07-31 12:09] LABS: Appearance Urine UA CLEAR; Bilirubin Urine UA NEGATIVE (NEGATIVE); Color Urine UA YELLOW; Glucose Urine UA NEGATIVE (Negative); Ketones Urine UA 1+ (NEGATIVE); Leukocyte Esterase Urine UA NEGATIVE (NEGATIVE); Nitrite Urine UA NEGATIVE (Negative); Occult Blood Urine UA TRACE-INTACT (Negative); Protein Urine UA NEGATIVE (Negative); Urobilinogen Urine UA 0.2 E.U./dL (0.2)
[2024-07-31 12:13] LABS: NT-proBNP (BNP-Adult 18+) 181 pg/mL (<450)
[2024-07-31 12:17] LABS: pH Urine UA 6.5 (4.5-8.0)
[2024-07-31 12:19] LABS: Urine Volume 10mL (spun)
[2024-07-31 12:20] LABS: Procalcitonin < 0.030 ng/mL (<0.5)
[2024-07-31 12:20] LABS: Bacteria Urine None Seen; Culture Indicated Urine Cult Not Indicated; RBC Urine 1-5/HPF (0-5/HPF); Squamous Epithelial Cell Urine 0-1 /HPF (0-5/HPF); WBC Urine 0-1/HPF (0-5/HPF)
== END ==
LOC: LAB 10:42
PROVIDERS: PCP Family Medicine; Referring Provider Family Medicine; Visit Provider Family Medicine
DX: R53.1 Weakness (principal); M62.82 Rhabdomyolysis; U07.1 COVID-19; R41.0 Disorientation, unspecified; R26.89 Other abnormalities of gait and mobility
CPT/HCPCS: 36415; 80053; 81001; 82550; 83880; 84145; 84443; 85025

== ENCOUNTER 2024-07-31 13:27 | Inpatient (IN) | payer MEDICARE, OTHER, SELFPAY ==
[2024-07-31] VITALS (10 sets, daily range): BP systolic 149–172; BP diastolic 65–76; PULSE 65–77; RESP 15–20; TEMP 36.6–37.2; O2SAT 96–100; BMI 21.7; BMI 21.0
--- NOTE | 2024-07-31 13:47 | EKG_ITS ---
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
--- NOTE | 2024-07-31 14:15 | ED_ITS ---
HPI - Weakness General Chief complaint: Weakness Stated complaint: weakness, confusion Time Seen by Provider: 07/31/24 14:15 History of Present Illness HPI Narrative: 88-year-old female without any significant past medical history comes into the ED for persistent weakness, to note patient was recently diagnosed with rhabdomyolysis as well as COVID, however patient having persistent symptoms therefore decided come back into the ED for further evaluation treatment. Related Data Home Medications Medication Instructions Recorded Confirmed diltiazem HCl 360 mg 360 mg PO DAILY 07/31/24 07/31/24 capsule,extended release 24 hr lisinopril 40 mg tablet 40 mg PO DAILY 07/31/24 07/31/24 nirmatrelvir 300 mg (150 mg 1 ea PO BID 07/31/24 07/31/24 x2)-ritonavir 100 mg tablet,dose pack (Paxlovid) Allergies Allergy/AdvReac Type Severity Reaction Status Date / Time Penicillins Allergy Verified 07/31/24 12:34 Patient History Social History household members: family Smoking Status: Never smoker alcohol intake: never Smoking Status: Unknown if ever smoked Exam Initial Vital Signs Initial Vital Signs: Vital Signs Pulse Rate 67 07/31/24 13:40 Blood Pressure 163/76 H 07/31/24 13:40 Pulse Oximetry 99 07/31/24 13:40 Course Orders Ordered: Acetaminophen (Acetaminophen 325 Mg Tablet) 650 mg PO Q6H PRN PRN Reason: Fever/Mild Pain (1-3) Diltiazem HCl (Diltiazem Cd 180 Mg Cap) 360 mg PO DAILY [facility] Enoxaparin Sodium (Enoxaparin 40 Mg/0.4 Ml Syringe) 40 mg SUBCUT DAILY [facility] Sodium Chloride (Normal Saline 0.9%) 1,000 mls @ 84 mls/hr IV CONT RASHEEDA Last Admin: 07/31/24 18:54 Dose: 84 mls/hr Documented By: KDK Lisinopril (Lisinopril 20 Mg Tablet) 40 mg PO DAILY [facility] Naloxone HCl (Naloxone 0.4 Mg/Ml Vial) 0.2 mg IV Q2MIN PRN PRN Reason: Opiate Reversal Discontinued Medications Sodium Chloride (Normal Saline 0.9%) 1,000 mls @ 1,000 mls/hr IV BOLUS ONE Stop: 07/31/24 15:15 Last Infusion: 07/31/24 15:47 Dose: Infused Documented By: Admin: 07/31/24 14:50 Dose: 1,000 mls/hr Documented By: SHIVANI Vital Signs Vital signs: Vital Signs - 8 hr 07/31/24 13:40 07/31/24 13:40 07/31/24 13:50 Temperature 98.9 F Pulse Rate 67 70 Respiratory Rate 20 Blood Pressure 163/76 H 163/76 H Pulse Oximetry 99 100 Oxygen Delivery Method Room Air 07/31/24 14:00 07/31/24 14:02 07/31/24 14:02 Temperature Pulse Rate 69 66 Respiratory Rate 16 17 Blood Pressure 158/70 H Pulse Oximetry 99 100 Oxygen Delivery Method 07/31/24 14:30 07/31/24 14:30 07/31/24 15:00 Temperature Pulse Rate 65 68 Respiratory Rate 17 16 Blood Pressure 150/67 H Pulse Oximetry 99 99 Oxygen Delivery Method 07/31/24 15:00 07/31/24 15:30 07/31/24 15:30 Temperature Pulse Rate 72 Respiratory Rate 15 Blood Pressure 154/70 H 149/70 H Pulse Oximetry 99 Oxygen Delivery Method Room Air MDM - Weakness Differential Diagnosis Differential diagnosis: Likely dehydration and other (Hyponatremia) Lab Data 08/01/24 04:39 08/01/24 04:39 Labs: Lab Results 07/31/24 07/31/24 Range/Units 14:28 15:43 WBC 5.8 (4.5-11.0) X10^3/uL RBC 4.35 (4.0-5.2) X10^6/uL Hgb 12.8 (12.0-16.0) g/dL Hct 36.2 (36-46) % MCV 83.3 (80-100) fL MCH 29.3 (26-34) PG MCHC 35.2 (30-36) % RDW 13.6 (11.6-14.8) % Plt Count 234 (150-400) X10^3/uL Neut % (Auto) 68.6 (50-75) % Lymph % (Auto) 21.8 L (25-40) % [place] % (Auto) 8.7 (3-14) % Eos % (Auto) 0.3 L (2-4) % Baso % (Auto) 0.6 (0-2) % Neut # (Auto) 4000 (0468-8807) /uL Lymph # (Auto) 1300 (7331-9210) /uL [place] # (Auto) 500 (0-900) /uL Eos # (Auto) 0 (0-450) /uL Baso # (Auto) 0 (0-100) /uL Sodium 123 L (137-145) mmol/L Potassium 3.9 (3.4-5.1) mmol/L Chloride 88 L (98-107) mmol/L Carbon Dioxide 26 (22-32) mmol/L BUN 15 (7-17) mg/dL Creatinine 0.61 (0.52-1.04) mg/dL Estimated GFR > 60 (>60) mL/min BUN/Creatinine Ratio 24.6 H (6-22) Glucose 90 (80-110) mg/dL Lactate 0.8 (0.7-2.1) mmol/L Calcium 8.8 (8.4-10.2) mg/dL Magnesium 1.7 (1.6-2.3) mg/dL Total Bilirubin 0.9 (0.2-1.3) mg/dL AST 52 H (14-36) IU/L ALT 37 H (<35) IU/L Alkaline Phosphatase 56 (38-126) U/L Total Protein 7.9 (6.3-8.2) g/dL Albumin 4.6 (3.5-5.0) g/dL Globulin 3.3 (1.7-4.1) g/dL Albumin/Globulin Ratio 1.4 (1.0-2.8) Lipase 56 (23-300) U/L Urine Color Yellow Urine Appearance Clear Urine pH 6.5 (4.5-8.0) Ur Specific [place] <=1.005 (1.000-1.035) Urine Protein Negative (Negative) Urine Glucose (UA) Negative (Negative) g/dL Urine Ketones 1+ H (NEGATIVE) Urine Occult Blood Trace-lysed (Negative) Urine Nitrate Negative (Negative) Urine Bilirubin Negative (NEGATIVE) Urine Urobilinogen 0.2 (0.2) E.U./dL Ur Leukocyte Esterase 1+ H (NEGATIVE) Urine RBC None seen (0-5/HPF) Urine WBC 1-5/hpf (0-5/HPF) Ur Squamous Epith Cells 0-1 /hpf (0-5/HPF) Urine Bacteria None seen (None) Ur Culture Indicated? Specimen cultured Vol Urine Centrifuged 10ml (spun) Urine Dip Bedside Urine Glucose Negative Bedside Urine Bilirubin - Negative Bedside Urine Ketone +/- 5 Urine Specific [place] 1.010 Bedside Urine Occult Blood - Negative Bedside Urine pH 7.0 Bedside Urine Protein - Negative Bedside Urine Urobilinogen - Negative Bedside Urine Nitrite - Negative Bedside Urine Leukocytes + 70 Esterase MDM Narrative Medical decision making narrative: 88-year-old female without any significant past medical history presents for worsening weakness, mental status change according to family. Patient was initially seen by me on 07/20/2024 after she had mechanical trip and fall which resulted in traumatic rhabdomyolysis was sent home, subsequently patient improved symptoms however had a sudden change in strength/increased weakness on 07/27/2024, patient subsequently diagnosed with COVID at that time. States that since then patient has had 4 days of Paxlovid however patient having worsening weakness now unable to stand bear weight ambulate, normally is able to stand walk with walker. Patient went to outpatient urgent care was instructed to come into the ED given sodium 123, patient had urinalysis performed there which was unremarkable. Patient did have a repeat CT scan on 07/26/2024 which did not show any acute findings. Given patient no longer able to stand walk bear weight and patient with symptomatic hyponatremia at 123 patient require admission to the hospital. The patient's management plan was discussed Dr. Hernandez, who agrees to admit the patient to their service and assumes care of this patient at this time. Full admission orders will be placed by the primary team. Discharge Plan Departure Patient Disposition: Admitted as Observation Clinical Impression: Acute hyponatremia, Generalized weakness Admit Date/Time: 07/31/24 16:17 Admit Provider: Seven Hernandez V
[2024-07-31] MEDS: SODIUM CHLORIDE 0.9% 1,000 ML 1000 ML IV (14:50)
[2024-07-31 15:08] LABS: Lactate (Lactic Acid) 0.8 mmol/L (0.7-2.1)
[2024-07-31 15:09] LABS: Alanine Aminotransferase 37 IU/L (<35); Albumin 4.6 g/dL (3.5-5.0); Albumin Globulin Ratio 1.4 (1.0-2.8); Alkaline Phosphatase 56 U/L (38-126); BUN Creatinine Ratio 24.6 (6-22); Bilirubin Total 0.9 mg/dL (0.2-1.3); Blood Urea Nitrogen 15 mg/dL (7-17); Calcium 8.8 mg/dL (8.4-10.2); Carbon Dioxide 26 mmol/L (22-32); Chloride 88 mmol/L (98-107); Estimated Glomerular Filt Rate > 60 mL/min (>60); Globulin 3.3 g/dL (1.7-4.1); Glucose 90 mg/dL (80-110); Lipase 56 U/L (23-300); Sodium 123 mmol/L (137-145); Total Protein 7.9 g/dL (6.3-8.2)
[2024-07-31 15:11] LABS: Aspartate Aminotransferase 52 IU/L (14-36); HEMOLYSIS 76 (0-50); Potassium 3.9 mmol/L (3.4-5.1)
[2024-07-31 15:12] LABS: Magnesium 1.7 mg/dL (1.6-2.3)
[2024-07-31 15:13] LABS: Add Manual Diff / Slide Review NO; Basophils Absolute Auto 0 /uL (0-100); Basophils Percent Auto 0.6 % (0-2); Eosinophils Absolute Auto 0 /uL (0-450); Eosinophils Percent Auto 0.3 % (2-4); Hematocrit 36.2 % (36-46); Hemoglobin 12.8 g/dL (12.0-16.0); Lymphocytes Absolute Auto 1300 /uL (1100-4500); Lymphocytes Percent Auto 21.8 % (25-40); Mean Corpuscular HGB Conc 35.2 % (30-36); Mean Corpuscular Hemoglobin 29.3 PG (26-34); Mean Corpuscular Volume 83.3 fL (80-100); Monocytes Absolute Auto 500 /uL (0-900); Monocytes Percent Auto 8.7 % (3-14); Neutrophils Absolute Auto 4000 /uL (1500-7000); Neutrophils Percent Auto 68.6 % (50-75); Platelet Count 234 X10^3/uL (150-400); Red Blood Cell Count 4.35 X10^6/uL (4.0-5.2); Red Cell Distribution Width 13.6 % (11.6-14.8); White Blood Cell Count 5.8 X10^3/uL (4.5-11.0)
[2024-07-31 15:51] LABS: Appearance Urine UA CLEAR; Bilirubin Urine UA NEGATIVE (NEGATIVE); Color Urine UA YELLOW; Glucose Urine UA NEGATIVE (Negative); Ketones Urine UA 1+ (NEGATIVE); Leukocyte Esterase Urine UA 1+ (NEGATIVE); Nitrite Urine UA NEGATIVE (Negative); Occult Blood Urine UA TRACE-LYSED (Negative); Protein Urine UA NEGATIVE (Negative); Specific Gravity Urine UA <=1.005 (1.000-1.035); Urobilinogen Urine UA 0.2 E.U./dL (0.2)
[2024-07-31 16:04] LABS: pH Urine UA 6.5 (4.5-8.0)
[2024-07-31 16:14] LABS: RBC Urine None Seen (0-5/HPF); Urine Volume 10mL (spun)
[2024-07-31 16:15] LABS: Bacteria Urine None Seen; Culture Indicated Urine Specimen Cultured; Squamous Epithelial Cell Urine 0-1 /HPF (0-5/HPF); WBC Urine 1-5/HPF (0-5/HPF)
--- NOTE | 2024-07-31 18:16 | P.HP_ITS ---
History of Present Illness History of Present Illness Date Patient Seen: 07/31/24 Time Patient Seen: 18:20 Date of Onset of Symptoms: 07/31/24 Chief complaint: weakness, confusion Narrative: 88-year-old woman under primary care of Dr. Rocio Harden was recently diagnosed with COVID infection and developed persistent weakness today where laboratory evaluation found a serum sodium of 123, with otherwise unremarkable laboratory testing including normal white blood count, detailed below. She was directed to the emergency department and admitted for observation given persistent ongoing weakness. She was initially seen in the emergency department on 07/23/2024 after ground level fall where she laid on the floor for 5 8 hours, at which time her serum sodium was 126, given IV fluids, with normal neuroimaging and discharged home. She was seen in the emergency department on 07/26/2024 when she was diagnosed with COVID and treated with Paxlovid. She is seen with her son Bryan and [id number] erlinda today. She states she is comfortable though has diffuse aches that she feels just her usual arthritis. She denies chest pain, shortness for breath, nausea, vomiting, diarrhea or rash. [facility] Social History household members: family Smoking Status: Never smoker alcohol intake: never Meds Home Medications and Allergies Home Medications Medication Instructions Recorded Confirmed Type diltiazem HCl 360 mg 360 mg PO DAILY 07/31/24 07/31/24 History capsule,extended release 24 hr lisinopril 40 mg tablet 40 mg PO DAILY 07/31/24 07/31/24 History nirmatrelvir 300 mg (150 mg 1 ea PO BID 07/31/24 07/31/24 History x2)-ritonavir 100 mg tablet,dose pack (Paxlovid) Allergies Allergy/AdvReac Type Severity Reaction Status Date / Time Penicillins Allergy Verified 07/31/24 12:34 Review of Systems Review of Systems ROS: Yes All systems reviewed with the patient and are negative except as otherwise documented Exam Vital Signs (past 8 hours): - 07/31/24 13:40 07/31/24 13:40 07/31/24 13:50 Temperature 98.9 F Pulse Rate 67 70 Respiratory Rate 20 Blood Pressure 163/76 H 163/76 H Pulse Oximetry 99 100 Oxygen Delivery Method Room Air 07/31/24 14:00 07/31/24 14:02 07/31/24 14:02 Temperature Pulse Rate 69 66 Respiratory Rate 16 17 Blood Pressure 158/70 H Pulse Oximetry 99 100 Oxygen Delivery Method 07/31/24 14:30 07/31/24 14:30 07/31/24 15:00 Temperature Pulse Rate 65 68 Respiratory Rate 17 16 Blood Pressure 150/67 H Pulse Oximetry 99 99 Oxygen Delivery Method 07/31/24 15:00 07/31/24 15:30 07/31/24 15:30 Temperature Pulse Rate 72 Respiratory Rate 15 Blood Pressure 154/70 H 149/70 H Pulse Oximetry 99 Oxygen Delivery Method Room Air 07/31/24 16:00 07/31/24 16:00 07/31/24 16:30 Temperature Pulse Rate 74 77 Respiratory Rate 20 18 Blood Pressure 159/72 H Pulse Oximetry 99 99 Oxygen Delivery Method Room Air 07/31/24 16:30 Temperature Pulse Rate Respiratory Rate Blood Pressure 172/75 H Pulse Oximetry Oxygen Delivery Method Oxygen Delivery Method Room Air Narrative Exam Narrative: GENERAL: This is a well-nourished, well-developed [place] patient, in no apparent distress. HEAD: Atraumatic. Normocephalic. No temporal or scalp tenderness. EYES: Pupils equal round and reactive. Extraocular motions intact. No scleral icterus. No injection or drainage. ENT: Mucous membranes pink and moist. NECK: Trachea midline. No JVD, bruits or lymphadenopathy. Supple, nontender, no meningeal signs. CARDIOVASCULAR: Regular rate and rhythm without murmurs, gallops, or rubs. RESPIRATORY: Clear to auscultation. GASTROINTESTINAL: Abdomen soft, non-tender, nondistended. EXTREMITIES: No clubbing, cyanosis, or edema. BACK: Nontender without deformity or crepitance. No flank tenderness. NEUROLOGIC: Alert, oriented, speech fluent, full upper and lower motor strength, no focal deficits evident. DERMATOLOGIC: No rashes or skin lesions. Objective ECG Impression: Normal sinus rhythm at 69 beats per minute, LVH Imaging *: Radiologist's impression: 1. Chest x-ray 07/26/2024: No acute intracranial pathology. 2. Head CT 07/26/2024: No acute cardiopulmonary abnormality is seen. 3. Head/neck CT angiogram 07/23/2024: No significant intracranial arterial abnormality is seen. No significant abnormality is seen within the arteries of the neck. 4. Head CT 07/23/2024: No acute intracranial pathology. 5. Chest x-ray 07/23/2024: No acute cardiopulmonary abnormality is seen. Labs 07/31/24 14:28 07/31/24 14:28 Labs: Laboratory Results - last 24 hr 07/31/24 07/31/24 14:28 15:43 WBC 5.8 RBC 4.35 Hgb 12.8 Hct 36.2 MCV 83.3 MCH 29.3 MCHC 35.2 RDW 13.6 Plt Count 234 Neut % (Auto) 68.6 Lymph % (Auto) 21.8 L [place] % (Auto) 8.7 Eos % (Auto) 0.3 L Baso % (Auto) 0.6 Neut # (Auto) 4000 Lymph # (Auto) 1300 [place] # (Auto) 500 Eos # (Auto) 0 Baso # (Auto) 0 Sodium 123 L Potassium 3.9 Chloride 88 L Carbon Dioxide 26 BUN 15 Creatinine 0.61 Estimated GFR > 60 BUN/Creatinine Ratio 24.6 H Glucose 90 Lactate 0.8 Calcium 8.8 Magnesium 1.7 Total Bilirubin 0.9 AST 52 H ALT 37 H Alkaline Phosphatase 56 Total Protein 7.9 Albumin 4.6 Globulin 3.3 Albumin/Globulin Ratio 1.4 Lipase 56 Urine Color Yellow Urine Appearance Clear Urine pH 6.5 Ur Specific [place] <=1.005 Urine Protein Negative Urine Glucose (UA) Negative Urine Ketones 1+ H Urine Occult Blood Trace-lysed Urine Nitrate Negative Urine Bilirubin Negative Urine Urobilinogen 0.2 Ur Leukocyte Esterase 1+ H Urine RBC None seen Urine WBC 1-5/hpf Ur Squamous Epith Cells 0-1 /hpf Urine Bacteria None seen Ur Culture Indicated? Specimen cultured Vol Urine Centrifuged 10ml (spun) Assessment & Plan Assessment & Plan narrative: 1. 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 2. Recent COVID-19 infection. 3. Weakness due to 1. And 2. 4. Recent rhabdomyolysis, resolved. DVT prophylaxis: Subcutaneous heparin Code status: Full code. Reviewed on admission with her son Bryan who is her surrogate decision maker. Plan: -observation status -IV normal saline -monitor electrolytes -reassess for possible discharge in the morning COVID-19 COVID-19 status: Positive Quality VTE Deep Vein Thrombosis/Pulmonary Embolism Present on Admission: No MIPS - Admit I confirm the patient?s Advance Care Plan is present, Code status is documented, Surrogate decision maker is in patient?s record [If Yes, STOP here]: Yes MIPS - Meds 'Current medications' to include all prescriptions, [id number] products, herbals, cannabis/cannabidiol products, and vitamin/mineral/dietary (nutritional) supplements. I have utilized all available resources to obtain, update, or review the patient?s current medications. [If Yes, STOP here]: Yes PROFEE Screw Machine Set Up Operator Tool Document charge(s): No Charge Codes Initial inpatient/observation care: 05338
[2024-07-31] MEDS: SODIUM CHLORIDE 0.9% 1,000 ML 84 ML IV (18:54)
[2024-08-01] VITALS (7 sets, daily range): BP systolic 127–163; BP diastolic 60–82; PULSE 63–90; RESP 17–22; TEMP 36.2–36.7; O2SAT 98–100
[2024-08-01 04:48] LABS: Add Manual Diff / Slide Review NO; Basophils Absolute Auto 0 /uL (0-100); Basophils Percent Auto 0.5 % (0-2); Eosinophils Absolute Auto 0 /uL (0-450); Eosinophils Percent Auto 0.3 % (2-4); Hematocrit 35.9 % (36-46); Hemoglobin 12.4 g/dL (12.0-16.0); Lymphocytes Absolute Auto 1100 /uL (1100-4500); Lymphocytes Percent Auto 22.2 % (25-40); Mean Corpuscular HGB Conc 34.4 % (30-36); Mean Corpuscular Hemoglobin 29.4 PG (26-34); Mean Corpuscular Volume 85.5 fL (80-100); Monocytes Absolute Auto 400 /uL (0-900); Monocytes Percent Auto 8.1 % (3-14); Neutrophils Absolute Auto 3400 /uL (1500-7000); Neutrophils Percent Auto 68.9 % (50-75); Platelet Count 226 X10^3/uL (150-400); Red Cell Distribution Width 13.7 % (11.6-14.8)
[2024-08-01 04:58] LABS: Alanine Aminotransferase 32 IU/L (<35); Albumin Globulin Ratio 1.4 (1.0-2.8); Alkaline Phosphatase 53 U/L (38-126); Aspartate Aminotransferase 43 IU/L (14-36); BUN Creatinine Ratio 14.3 (6-22); Bilirubin Total 0.6 mg/dL (0.2-1.3); Blood Urea Nitrogen 9 mg/dL (7-17); Calcium 8.6 mg/dL (8.4-10.2); Carbon Dioxide 25 mmol/L (22-32); Chloride 95 mmol/L (98-107); Estimated Glomerular Filt Rate > 60 mL/min (>60); Globulin 2.9 g/dL (1.7-4.1); Glucose 100 mg/dL (80-110); HEMOLYSIS < 15 (0-50); Potassium 3.5 mmol/L (3.4-5.1); Sodium 128 mmol/L (137-145); Total Protein 6.9 g/dL (6.3-8.2)
[2024-08-01] MEDS: ENOXAPARIN 40 MG/0.4 ML SYRINGE SUBCUT (08:29)
[2024-08-01] MEDS: dilTIAZem CD 180 MG CAP 360 MG PO (08:29)
[2024-08-01] MEDS: lisinopriL 20 MG TABLET 40 MG PO (08:29)
[2024-08-01] MEDS: MAGNESIUM CHLORIDE 64 MG TABLET 128 MG PO (09:25)
[2024-08-01] MEDS: POTASSIUM CHLORIDE 20 MEQ TAB PO (09:25)
--- NOTE | 2024-08-01 14:55 | PT.IIE ---
Physical Therapy Inpatient Evaluation/Re-Eval M1 PT/OT-IP Prior Functional Status Start: 08/01/24 17:26 Freq: NEEDED Status: Active Protocol: Document 08/01/24 14:55 AB (Rec: 08/01/24 17:40 AB [id number]) Medical Review Prior Functional Status Medical History Reviewed Yes Communication able to make needs known Mobility and Gait pt stated that she was modified indpeendent with all mobilities and ambulation without AD during the day and uses a FWW at night; occasionally uses a SPC Social History Household Members none Living Arrangements House Number of Floors (Floors) One Floor Number of Stairs To Enter/Railing? no steps to enter Home Environment Standard Height Toilet,Walk in Shower Home Equipment Front Wheel Walker,Straight Cane,Hand Held Shower,Grab Bars Near Toilet,Grab Bars In Shower Additional Social History Comment pt lives alone and her grand daughter checked on her in the morning daily but will not be able to stay with her per pt M2 PT-IP Current Condition Start: 08/01/24 17:26 Freq: NEEDED Status: Active Protocol: Document 08/01/24 14:55 AB (Rec: 08/01/24 17:40 AB [id number]) Physical Therapy Current Condition Current Condition Evaluation Date 08/01/24 Treatment Diagnosis Covid; hyponatremia; difficulty in walking Onset Date 07/31/24 M3 PT-IP Subjective Start: 08/01/24 17:26 Freq: NEEDED Status: Active Protocol: Document 08/01/24 14:55 AB (Rec: 08/01/24 17:40 AB [id number]) Subjective Physical Therapy Visit Type Type Initial Evaluation Visit Start Time 14:55 Visit Stop Time 15:40 Number of KILN PACKER Visits 0 Physical Therapy Visit Comments Patient Comments agreeable to do PT M4 PT-IP Mobility and Gait Start: 08/01/24 17:26 Freq: NEEDED Status: Active Protocol: Document 08/01/24 14:55 AB (Rec: 08/01/24 17:40 AB [id number]) PT-Bed Mobility Assessment Supine to Sit Supine to Sit Maximum Assistance,1 Person Assistance,Head of Bed Elevated PT-Transfer Assessment Sit to and From Stand Sit to and from Stand Maximum Assistance,1 Person Assistance,Use of Upper Extremities Equipment Transfer Assistive Device Gait Belt,Front Wheeled Walker Orthotic/Prosthetic Devices or Brace: No Transfers Transfer Destination Bedside Commode Transfer Technique ambulated Transfer Ability Level of Assist Maximum Assistance,1 Person Assistance,Use of Upper Extremities Comments Mobility Comments pt in bed and agreed to do PT. obtained PLOF and home set up. BP: 122/75 O2 sat at RA: 98-100%. completed supine to sit max A and max cues with HOB elevated . increase posterior trunk lean. pt with increase muscle guarding and tigthness during mobility. pt stated that she needs to use the toilet. sit to stand from EOB max A and max cues. increase retrolean requiring max A to reposition body and for steadiness. attempted to ambulate to the toilet using FWW max A and max cues but only able to ambulate ~ 3 ft. bedside commode positioned close to pt . assisted pt with brief management and max A for controlled descent to the commode. pt presents with posterior LOB and needing max A for steadiness and max A for maneuvering FWW. pt requiring max cues and one step commands with all tasks. presents with NBOS during ambulation with shuffling gait . pt requiring max A for sit to stand from the commode and needed assistance with hygiene care and brief management. step transfer to chair using FWW max A and max cues. pt agreed to stay up on the chair . positioned pt on the chair. call light and table placed within reach. informed case finisher regarding pt's level of assistance and SNF recommendation. Gait Assessment Gait Gait Assistance Required: Maximum Assistance,1 Person Assist Distance (Feet) 3 Able to Maintain Weight Bearing Status Yes During Gait Assistive Devices Assistive Device Gait Belt,Front Wheeled Walker Orthotic/Prosthetic Devices or Brace: No Gait Deviations General Gait Pattern Decreased Stride Length, Decreased Feet Clearance, Narrow Based Gait,Step-to Gait Factors Limiting Gait Function Factors Limiting Gait Function Decreased Activity Tolerance, Decreased Strength,Difficulty Following Directions,Limited Range of Motion,Poor Balance, Poor Safety Awareness PT-Balance Assessment Sitting Balance and Reactions Static Sitting Balance Ability Fair Dynamic Sitting Balance Ability Poor Standing Balance and Reactions Static Standing Balance Ability Poor Dynamic Standing Balance Ability Poor Device Used FWW M5 PT-IP Objective Assessments Start: 08/01/24 17:26 Freq: NEEDED Status: Active Protocol: Document 08/01/24 14:55 AB (Rec: 08/01/24 17:40 AB [id number]) Orientation Orientation/Cognition Level of Alertness Alert Orientation Name,Place,Situation Language Function Ability No Deficits Noted Safety Awareness Decreased Safety Awareness Memory Description No Deficits Noted Gross Range of Motion Lower Extremity ROM Assessment Within Functional Limits Strength Lower Extremity Strength Assessment Bilaterally Impaired Hip 4-/5 Knee 4-/5 Muscle Tone Muscle Tone WNL Yes M6 PT-IP Treatment Start: 08/01/24 17:26 Freq: NEEDED Status: Active Protocol: Document 08/01/24 14:55 AB (Rec: 08/01/24 17:40 AB [id number]) Physical Therapy Treatment Education Education Provided Safety M7 PT-IP Assessment and Plan Start: 08/01/24 17:26 Freq: NEEDED Status: Active Protocol: Document 08/01/24 14:55 AB (Rec: 08/01/24 17:40 AB [id number]) PT Summary Assessment and Plan Potential Rehabilitation Potential Fair Status of Condition at Evaluation Evolving Summary Impairments Pain,ROM,Strength,Balance, Coordination,Sensation,Tone, Cognition,Bed Mobility, Transfers,Gait,Activity Tolerance Assessment Summary pt is an 88 y/o F with dx of Covid and admitted for hyponatremia. pt requiring max A x 1 and max cues using fWW and will require SNF rehab to improve overall strength and function. pt lives alone and stated that her grand daughter checks on her daily but will not be able to stay and assist her at home. will continue to assess progress. Goals Bed Mobility Goal Minimal Assistance Transfer Goal Minimal Assistance,Front Wheeled Walker Gait Goal Minimal Assistance,Front Wheel Walker Gait Distance 50 Other Goals improve bed mobility, transfers, ambulation using FWW ~ 150 ft mod I Days to Meet Goals 10 Frequency of Treatment Frequency Of Treatment Once a Day Treatment Plan Physical Therapy Treatment Plan Bed Mobility Training,Transfer Training,Gait Training, Therapeutic Exercise,Balance Retraining,Post Op Education, Discharge Planning,Hot or Cold Pack,Neuromuscular Re-ed, Coordination Retraining,Manual Therapy Precautions Other Precautions falls; Covid droplet precautions Recommendations To Nursing Amount of Assist Needed 2 Person Assist Discharge Recommendations PT Discharge Recommendations SNF Rehab Transportation Needs at Discharge Wheelchair/Cabulance
--- NOTE | 2024-08-01 16:02 | PM.PN.IH.1 ---
Subjective Subjective Date Patient Seen: 08/01/24 Time Patient Seen: 10:40 Interval history: Narrative: 88-year-old woman under primary care of Dr. Rocio Harden was recently diagnosed with COVID infection and developed persistent weakness today where laboratory evaluation found a serum sodium of 123, with otherwise unremarkable laboratory testing including normal white blood count, detailed below. She was directed to the emergency department and admitted for observation given persistent ongoing weakness. She was initially seen in the emergency department on 07/23/2024 after ground level fall where she laid on the floor for 5 8 hours, at which time her serum sodium was 126, given IV fluids, with normal neuroimaging and discharged home. She was seen in the emergency department on 07/26/2024 when she was diagnosed with COVID and treated with Paxlovid. She is seen with her son Bryan and [id number] erlinda today. She states she is comfortable though has diffuse aches that she feels just her usual arthritis. She denies chest pain, shortness for breath, nausea, vomiting, diarrhea or rash. Interval history: Patient reports feeling persistently weak, and requiring moderate assistance her physical therapy. Exam Vital Signs (past 8 hours): - 08/01/24 08:29 08/01/24 12:00 Temperature 97.9 F Pulse Rate 90 86 Respiratory Rate 17 Blood Pressure 163/82 H 137/71 Pulse Oximetry 100 Oxygen Flow Rate 0 Oxygen Delivery Method Room Air Oxygen Flow Rate 0 Narrative Exam Narrative: GENERAL: This is a well-nourished, well-developed [place] patient, in no apparent distress. EYES: Pupils equal round and reactive. Extraocular motions intact. No scleral icterus. No injection or drainage. ENT: Mucous membranes pink and moist. NECK: Supple, nontender, no meningeal signs. CARDIOVASCULAR: Regular rate and rhythm without murmurs, gallops, or rubs. RESPIRATORY: Clear to auscultation. GASTROINTESTINAL: Abdomen soft, non-tender, nondistended. EXTREMITIES: No clubbing, cyanosis, or edema. NEUROLOGIC: Alert, oriented, speech fluent, full upper and lower motor strength, no focal deficits evident. DERMATOLOGIC: No rashes or skin lesions. Objective Labs 08/01/24 04:39 08/01/24 04:39 Labs: Laboratory Results - last 24 hr 07/31/24 08/01/24 15:43 04:39 WBC 5.0 RBC 4.20 Hgb 12.4 Hct 35.9 L MCV 85.5 MCH 29.4 MCHC 34.4 RDW 13.7 Plt Count 226 Neut % (Auto) 68.9 Lymph % (Auto) 22.2 L [place] % (Auto) 8.1 Eos % (Auto) 0.3 L Baso % (Auto) 0.5 Neut # (Auto) 3400 Lymph # (Auto) 1100 [place] # (Auto) 400 Eos # (Auto) 0 Baso # (Auto) 0 Sodium 128 L Potassium 3.5 Chloride 95 L Carbon Dioxide 25 BUN 9 Creatinine 0.63 Estimated GFR > 60 BUN/Creatinine Ratio 14.3 Glucose 100 Calcium 8.6 Total Bilirubin 0.6 AST 43 H ALT 32 Alkaline Phosphatase 53 Total Protein 6.9 Albumin 4.0 Globulin 2.9 Albumin/Globulin Ratio 1.4 Urine Color Yellow Urine Appearance Clear Urine pH 6.5 Ur Specific [place] <=1.005 Urine Protein Negative Urine Glucose (UA) Negative Urine Ketones 1+ H Urine Occult Blood Trace-lysed Urine Nitrate Negative Urine Bilirubin Negative Urine Urobilinogen 0.2 Ur Leukocyte Esterase 1+ H Urine RBC None seen Urine WBC 1-5/hpf Ur Squamous Epith Cells 0-1 /hpf Urine Bacteria None seen Ur Culture Indicated? Specimen cultured Vol Urine Centrifuged 10ml (spun) [facility] Social History household members: family Smoking Status: Never smoker alcohol intake: never Assessment & Plan Assessment & Plan narrative: 1. 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 Improved from 07/23 on admission to 128 today. Monitor. Stop IV fluids. 2. Recent COVID-19 infection. 3. Weakness due to 1. And 2. Persistent. Continue physical therapy. 4. Recent rhabdomyolysis, resolved. DVT prophylaxis: Subcutaneous Lovenox Code status: Full code. Reviewed on admission with her son Bryan who is her surrogate decision maker. Plan: -observation status -stop IV normal saline -monitor electrolytes -reassess for possible discharge in the morning COVID-19 COVID-19 status: Positive Quality VTE Deep Vein Thrombosis/Pulmonary Embolism Present on Admission: No IH PROFEE [place] Operator Document charge(s): No Charge Codes Subsequent inpatient/observation care: [id number]
[2024-08-01] MEDS: CARBOXYMETHYLCELLULOSE DROPS 1 DROPS EYE-BOTH ×2 (16:15→18:35)
[2024-08-02] MEDS: ACETAMINOPHEN 325 MG TABLET 650 MG PO (03:28)
[2024-08-02 04:00] VITALS: BP 134/60; PULSE 73; RESP 18; TEMP 36.9; O2SAT 98
[2024-08-02 06:39] LABS: Add Manual Diff / Slide Review NO; Basophils Absolute Auto 0 /uL (0-100); Basophils Percent Auto 0.3 % (0-2); Eosinophils Absolute Auto 0 /uL (0-450); Eosinophils Percent Auto 0.2 % (2-4); Hematocrit 34.1 % (36-46); Hemoglobin 11.9 g/dL (12.0-16.0); Lymphocytes Absolute Auto 1300 /uL (1100-4500); Lymphocytes Percent Auto 14.7 % (25-40); Mean Corpuscular HGB Conc 34.8 % (30-36); Mean Corpuscular Hemoglobin 29.4 PG (26-34); Mean Corpuscular Volume 84.6 fL (80-100); Monocytes Absolute Auto 700 /uL (0-900); Monocytes Percent Auto 7.7 % (3-14); Neutrophils Absolute Auto 6600 /uL (1500-7000); Neutrophils Percent Auto 77.1 % (50-75); Platelet Count 230 X10^3/uL (150-400); Red Blood Cell Count 4.03 X10^6/uL (4.0-5.2); Red Cell Distribution Width 13.5 % (11.6-14.8); White Blood Cell Count 8.6 X10^3/uL (4.5-11.0)
[2024-08-02 06:51] LABS: BUN Creatinine Ratio 21.3 (6-22); Blood Urea Nitrogen 13 mg/dL (7-17); Calcium 8.8 mg/dL (8.4-10.2); Carbon Dioxide 26 mmol/L (22-32); Chloride 93 mmol/L (98-107); Estimated Glomerular Filt Rate > 60 mL/min (>60); Glucose 131 mg/dL (80-110); HEMOLYSIS < 15 (0-50); Potassium 3.8 mmol/L (3.4-5.1); Sodium 126 mmol/L (137-145)
[2024-08-02 07:08] LABS: Magnesium 1.7 mg/dL (1.6-2.3)
[2024-08-02 08:00] VITALS: BP 136/64; PULSE 77; RESP 17; TEMP 36.8; O2SAT 98
--- NOTE | 2024-08-02 08:01 | PM.PN.IH.1 ---
Subjective Subjective Date Patient Seen: 08/02/24 Time Patient Seen: 07:50 Interval history: Narrative: 88-year-old woman under primary care of Dr. Rocio Harden was recently diagnosed with COVID infection and developed persistent weakness today where laboratory evaluation found a serum sodium of 123, with otherwise unremarkable laboratory testing including normal white blood count, detailed below. She was directed to the emergency department and admitted for observation given persistent ongoing weakness. She was initially seen in the emergency department on 07/23/2024 after ground level fall where she laid on the floor for 5 8 hours, at which time her serum sodium was 126, given IV fluids, with normal neuroimaging and discharged home. She was seen in the emergency department on 07/26/2024 when she was diagnosed with COVID and treated with Paxlovid. She is seen with her son Bryan and [id number]-[id number] erlinda today. She states she is comfortable though has diffuse aches that she feels just her usual arthritis. She denies chest pain, shortness for breath, nausea, vomiting, diarrhea or rash. Interval history: Patient reports feeling persistently weak, with increased knee pain today, not feeling well in general. No chest pain or shortness of breath. Exam Vital Signs (past 8 hours): - 08/02/24 04:00 Temperature 98.5 F Pulse Rate 73 Respiratory Rate 18 Blood Pressure 134/60 Pulse Oximetry 98 Oxygen Flow Rate 0 Oxygen Delivery Method Room Air Oxygen Flow Rate 0 Narrative Exam Narrative: GENERAL: This is a well-nourished, well-developed [place] patient, in no apparent distress, appears fatigued. EYES: Pupils equal round and reactive. Extraocular motions intact. No scleral icterus. No injection or drainage. ENT: Mucous membranes pink and moist. NECK: Supple, nontender, no meningeal signs. CARDIOVASCULAR: Regular rate and rhythm without murmurs, gallops, or rubs. RESPIRATORY: Clear to auscultation. GASTROINTESTINAL: Abdomen soft, non-tender, nondistended. EXTREMITIES: No clubbing, cyanosis, or edema. MSK: Right greater than left knee mildly tender, minimal swelling. NEUROLOGIC: Alert, oriented, speech fluent, full upper and lower motor strength, no focal deficits evident. DERMATOLOGIC: No rashes or skin lesions. Objective Labs 08/02/24 06:33 08/02/24 06:33 Labs: Laboratory Results - last 24 hr 08/02/24 06:33 WBC 8.6 D RBC 4.03 Hgb 11.9 L Hct 34.1 L MCV 84.6 MCH 29.4 MCHC 34.8 RDW 13.5 Plt Count 230 Neut % (Auto) 77.1 H Lymph % (Auto) 14.7 L [place] % (Auto) 7.7 Eos % (Auto) 0.2 L Baso % (Auto) 0.3 Neut # (Auto) 6600 Lymph # (Auto) 1300 [place] # (Auto) 700 Eos # (Auto) 0 Baso # (Auto) 0 Sodium 126 L Potassium 3.8 Chloride 93 L Carbon Dioxide 26 BUN 13 Creatinine 0.61 Estimated GFR > 60 BUN/Creatinine Ratio 21.3 Glucose 131 H Calcium 8.8 Magnesium 1.7 PFSH Social History household members: none Smoking Status: Never smoker alcohol intake: never Assessment & Plan Assessment & Plan narrative: 1. 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 Improved from 07/23 on admission to 128 yesterday but worse at 1:26 a.m. today. Monitor. Encouraged voluntary fluid restriction. Remain off IV fluids. 2. Recent COVID-19 infection. 3. Weakness due to 1. And 2. Persistent. Continue physical therapy. 4. Recent rhabdomyolysis, resolved. 5. Bilateral knee pain, possibly early pseudogout. Administer IV Toradol 15 mg x 1 DVT prophylaxis: Subcutaneous Lovenox Code status: Full code. Reviewed on admission with her son Bryan who is her surrogate decision maker. Cares reviewed at bedside with son Bryan, [id number] Twyla and other son Remy. Plan: -observation status -IV Toradol 15 mg x 1 -monitor electrolytes -encourage fluid restriction -continue physical therapy -reassess for possible discharge tomorrow COVID-19 COVID-19 status: Positive Quality VTE Deep Vein Thrombosis/Pulmonary Embolism Present on Admission: No IH PROFEE American [employer] Studies Professor Document charge(s): No Charge Codes Subsequent inpatient/observation care: [id number]
[2024-08-02 08:50] VITALS: BP 134/63; PULSE 73
[2024-08-02] MEDS: lisinopriL 20 MG TABLET 40 MG PO (08:50)
[2024-08-02] MEDS: KETOROLAC 30 MG/ML VIAL 15 MG IV (08:53)
[2024-08-02] MEDS: ENOXAPARIN 40 MG/0.4 ML SYRINGE SUBCUT (08:53)
[2024-08-02] MEDS: dilTIAZem CD 180 MG CAP 360 MG PO (08:55)
[2024-08-02] MEDS: MAGNESIUM CHLORIDE 64 MG TABLET 128 MG PO (10:26)
[2024-08-02] MEDS: CARBOXYMETHYLCELLULOSE DROPS 1 DROPS EYE-BOTH (11:39)
--- NOTE | 2024-08-02 11:53 | CM.DANOTE ---
DCP Assessment note pt is a 88yo F admitted with hyponatremia/weakness from COVID. PCP Rocio Harden Payer Medicare and prime THERAPY AIDE reviewed EMR Per [facility] RN, able to switch to INPT status as of today, 08/02. MCR ready for SNF 08/05. Per PT=rec SNF. THERAPY AIDE did not meet with pt in room due to pos COVID diagnosis. THERAPY AIDE had lengthy conversation with son Bryan ([phone]). Bryan lives in [place] but here out of town due to pt's admission to . working on selling her house to move into [place] TERM, likely [facility] in [place]. THERAPY AIDE reviewed MCR SNF benefit. Per son, family preference is to dc to SNF for rehab to get strength back until moves into LONG TERM. preference in order is 1) [facility] 2) [facility] and 3) [facility]. son reports understanding that barriers to placement is pos COVID diagnosis. THERAPY AIDE sent referral to . Will send referrals to [facility]. PASRR needed P: anticipate SNF dc pending acceptance. CM team will continue to follow closely DAVE Carrillo Discharge Planning/Care Management CM Discharge Assessment Start: 08/02/24 11:51 Freq: Status: Active Protocol: Document 08/02/24 11:52 SL (Rec: 08/02/24 11:53 [id number]) Discharge Planning Assessment Assigned Surgical Instrument Repair Specialist DAVE Navarro DPOA/Assigned Designee Name douglas Adams Contact Information [phone] Advance Directives? No History Provided By Patient,Family Member,Medical Record Prior Living Arrangements House Household Members none Type of transporation used prior to Relies on Others admit DME Already Rented / Owned FWW / Walker,Cane Patient/Family Preference Senior Care Facility Discharge Plan Senior Care Facility Transportation Arrangement likely facility transport Referrals Initiated Senior Care Review Status In Process Please Provide Date Initial DC 08/02/24 Assessment Was Performed Next Review Type Continued Stay Review
[2024-08-02] MEDS: polyethylene glycoL 3350 17 GM POWD.PACK PO (12:18)
--- NOTE | 2024-08-02 12:50 | PT.IPTN ---
Physical Therapy Treatment Note M2 PT-IP Current Condition Start: 08/01/24 17:26 Freq: NEEDED Status: Active Protocol: Document 08/01/24 14:55 AB (Rec: 08/01/24 17:40 AB [id number]) Physical Therapy Current Condition Current Condition Evaluation Date 08/01/24 Treatment Diagnosis Covid; hyponatremia; difficulty in walking Onset Date 07/31/24 M3 PT-IP Subjective Start: 08/01/24 17:26 Freq: NEEDED Status: Active Protocol: Document 08/02/24 12:26 MB (Rec: 08/02/24 12:50 MB [id number]) Subjective Physical Therapy Visit Type Type Treatment Note Visit Start Time 12:26 Visit Stop Time 12:45 Number of RAILCAR MECHANIC Visits 0 Physical Therapy Visit Comments Patient Comments Pt is agreeable to try PT, get up to the commode. M4 PT-IP Mobility and Gait Start: 08/01/24 17:26 Freq: NEEDED Status: Active Protocol: Document 08/02/24 12:26 MB (Rec: 08/02/24 12:50 MB [id number]) PT-Bed Mobility Assessment Rolling Type of Rolling Roll to Right Supine to Sit Supine to Sit Contact Guard Assistance,1 Person Assistance,Head of Bed Elevated,Bedrails Scooting Scooting to Edge of Bed Contact Guard Assistance PT-Transfer Assessment Sit to and From Stand Sit to and from Stand Maximum Assistance,1 Person Assistance,Use of Upper Extremities Equipment Transfer Assistive Device Gait Belt,Front Wheeled Walker Orthotic/Prosthetic Devices or Brace: No Transfers Transfer Destination Bedside Commode Transfer Technique ambulated Transfer Ability Level of Assist Maximum Assistance,1 Person Assistance,Use of Upper Extremities Comments Mobility Comments Pt with very stiff legs and difficulty flexing at knees, standing upright and increasing LEOBARDO, heavy posterior lean and MEDICAL RECRUITER arrives to help with hygiene after urinating on BSC, pt does not let go of walker to reach back for BSC and remains very stiff all over Gait Assessment Gait Gait Assistance Required: Maximum Assistance,2 Person Assist Distance (Feet) 1 Able to Maintain Weight Bearing Status Yes During Gait Assistive Devices Assistive Device Gait Belt,Front Wheeled Walker Orthotic/Prosthetic Devices or Brace: No Gait Deviations General Gait Pattern Antalgic,Decreased Feet Clearance,Flexed Trunk,Narrow Based Gait,Step-to Gait Factors Limiting Gait Function Factors Limiting Gait Function Decreased Activity Tolerance, Difficulty Following Directions,Incoordination, Limited Range of Motion,Pain, Poor Balance,Poor Safety Awareness PT-Balance Assessment Sitting Balance and Reactions Static Sitting Balance Ability Fair Dynamic Sitting Balance Ability Poor Standing Balance and Reactions Static Standing Balance Ability Poor Dynamic Standing Balance Ability Poor Device Used FWW M5 PT-IP Objective Assessments Start: 08/01/24 17:26 Freq: NEEDED Status: Active Protocol: Document 08/01/24 14:55 AB (Rec: 08/01/24 17:40 AB [id number]) Orientation Orientation/Cognition Level of Alertness Alert Orientation Name,Place,Situation Language Function Ability No Deficits Noted Safety Awareness Decreased Safety Awareness Memory Description No Deficits Noted Gross Range of Motion Lower Extremity ROM Assessment Within Functional Limits Strength Lower Extremity Strength Assessment Bilaterally Impaired Hip 4-/5 Knee 4-/5 Muscle Tone Muscle Tone WNL Yes M6 PT-IP Treatment Start: 08/01/24 17:26 Freq: NEEDED Status: Active Protocol: Document 08/02/24 12:26 MB (Rec: 08/02/24 12:50 MB [id number]) Physical Therapy Treatment Education Education Provided Safety M7 PT-IP Assessment and Plan Start: 08/01/24 17:26 Freq: NEEDED Status: Active Protocol: Document 08/02/24 12:26 MB (Rec: 08/02/24 12:50 MB [id number]) PT Summary Assessment and Plan Potential Rehabilitation Potential Fair Status of Condition at Evaluation Evolving Summary Impairments Pain,ROM,Strength,Balance, Coordination,Sensation,Tone, Cognition,Bed Mobility, Transfers,Gait,Activity Tolerance Progress Towards Goals Slow Progress due to Pain,Slow Progress due to Activity Tolerance Assessment Summary Pt with overall stiffness and trouble moving arms and legs today. She requires heavy max A for STS and transfers today. She has a strong posterior lean. +2 help available today for hygiene and then transfer to chair. Goals Bed Mobility Goal Independent Transfer Goal Standby Assistance,Front Wheeled Walker Gait Goal Standby Assistance,Front Wheel Walker Gait Distance 50 Other Goals improve bed mobility, transfers, ambulation using FWW ~ 150 ft mod I Days to Meet Goals 10 Frequency of Treatment Frequency Of Treatment Once a Day Other frequency +1-2 Treatment Plan Physical Therapy Treatment Plan Bed Mobility Training,Transfer Training,Gait Training, Therapeutic Exercise,Balance Retraining,Post Op Education, Discharge Planning,Hot or Cold Pack,Neuromuscular Re-ed, Coordination Retraining,Manual Therapy Precautions Other Precautions falls; Covid droplet precautions Recommendations To Nursing Amount of Assist Needed 2 Person Assist Discharge Recommendations PT Discharge Recommendations SNF Rehab Transportation Needs at Discharge Wheelchair/Cabulance
[2024-08-02] MEDS: DOCUSATE 100 MG CAPSULE 200 MG PO (14:42)
[2024-08-02] MEDS: SENNOSIDES 8.6 MG TABLET PO (14:42)
--- NOTE | 2024-08-02 15:07 | CM.DPNOTE ---
DCP Cont Sent SNF referrals via secure email to Regina at [facility] and Sheila at [facility], per patient preference and at the request of assigned DAVE aNvarro. PASRR completed in anticipation of SNF at [place]. SHAAN
[2024-08-02 16:00] VITALS: BP 137/55; PULSE 73; RESP 18; TEMP 36.7; O2SAT 98
[2024-08-02 20:14] VITALS: BP 157/69; PULSE 72; RESP 19; TEMP 36.6; O2SAT 100
--- NOTE | 2024-08-02 23:47 | PC.NURSE ---
Addendum entered by Coleen Ac R.N. 08/03/24 05:33: Pt had a hard medium stool this am. Pt c/o not having a bm for several days. pt was given prune juice and could benefit from routine bowel medications. Original Note: Assume care of patient on 08/02/24 at 2315
[2024-08-03 04:34] VITALS: BP 135/59; PULSE 70; RESP 18; TEMP 36.8; O2SAT 98
[2024-08-03 05:16] LABS: BUN Creatinine Ratio 25.4 (6-22); Blood Urea Nitrogen 17 mg/dL (7-17); Carbon Dioxide 25 mmol/L (22-32); Chloride 92 mmol/L (98-107); Estimated Glomerular Filt Rate > 60 mL/min (>60); Glucose 167 mg/dL (80-110); HEMOLYSIS < 15 (0-50); Magnesium 1.8 mg/dL (1.6-2.3); Potassium 4.2 mmol/L (3.4-5.1); Sodium 125 mmol/L (137-145)
[2024-08-03 08:00] VITALS: BP 144/67; PULSE 75; RESP 18; TEMP 36.4; O2SAT 99
[2024-08-03] MEDS: lisinopriL 20 MG TABLET 40 MG PO (09:30)
[2024-08-03] MEDS: CARBOXYMETHYLCELLULOSE DROPS 1 DROPS EYE-BOTH (09:30)
[2024-08-03] MEDS: ENOXAPARIN 40 MG/0.4 ML SYRINGE SUBCUT (09:30)
[2024-08-03] MEDS: polyethylene glycoL 3350 17 GM POWD.PACK PO (09:31)
[2024-08-03] MEDS: dilTIAZem CD 180 MG CAP 360 MG PO (09:31)
--- NOTE | 2024-08-03 10:36 | PC.NURSE ---
Addendum entered by Shell Blandon R.N. 08/03/24 16:33: Patient is on a 1500 fluid restriction in 24 hours. 500ml per trays. She was just repositioned and is doing well. Started on salt tabs and tolerating these well. Resting comfortably. Original Note: Assess- Patient is alert and oriented x4, she coughed when this RN was in the room assessing her and she did clear some sputum. Clear in color. Patient ate some at breakfast, she is getting a bed bath now and was also given miralax to help her have a bowel movement.
[2024-08-03 10:42] LABS: Appearance Urine UA CLOUDY; Bilirubin Urine UA NEGATIVE (NEGATIVE); Color Urine UA YELLOW; Glucose Urine UA NEGATIVE (Negative); Ketones Urine UA 1+ (NEGATIVE); Leukocyte Esterase Urine UA NEGATIVE (NEGATIVE); Nitrite Urine UA POSITIVE (Negative); Occult Blood Urine UA NEGATIVE (Negative); Protein Urine UA 1+ (Negative); Specific Gravity Urine UA 1.015 (1.000-1.035); Urobilinogen Urine UA 0.2 E.U./dL (0.2)
[2024-08-03 10:43] LABS: Urine Volume 10mL (spun); pH Urine UA 7.5 (4.5-8.0)
[2024-08-03 10:48] LABS: Amorphous Sediment Urine 3+; Bacteria Urine None Seen; RBC Urine None Seen (0-5/HPF); Squamous Epithelial Cell Urine 1-5 /HPF (0-5/HPF); WBC Urine None Seen (0-5/HPF)
[2024-08-03 10:49] LABS: Culture Indicated Urine Specimen Cultured
[2024-08-03 11:01] LABS: Sodium Urine Random 206 mmol/L (30-90)
[2024-08-03 12:00] VITALS: BP 123/60; PULSE 81; RESP 12; TEMP 36.9; O2SAT 99
--- NOTE | 2024-08-03 12:25 | CM.DPNOTE ---
DCP note INSTITUTION LIBRARIAN reviewed EMR Per Son Bryan, preferences changed to now having 1) [facility] 2) [facility] and 3) [facility]. INSTITUTION LIBRARIAN answered questions to best of ability. Bryan appreciative of updates. Per Paulina from , can potentially accept pt. current COVID policy is 5 days after pos test (08/04) retest, if negative test with no active symptoms can likely admit as normal. if pt retest positive, can accept pt after 10 days since first pos test (08/09). initially tested pos 07/27. pt would be medicare ready Sat. per provider in morning rounds, sodium remains low. will continue to work on that. PASRR done P: hopeful to dc to [facility] pending official acceptance and COVID test tomorrow. [facility] and [facility] as back ups options pending acceptance. [facility] pending medical stability/official acceptance. DAVE Carrillo
[2024-08-03] MEDS: SODIUM CHLORIDE 1,000 MG TABLET 1000 MG PO ×3 (13:31→20:58)
--- NOTE | 2024-08-03 14:19 | PT-IP ANOTE ---
PT checks in on pt who states today is a little better. She wishes to rest right now and would mobilize later if therapist available. Unsure if therapy can check back again this afternoon. Con't PT efforts and this may occur next date.
[2024-08-03 16:00] VITALS: BP 126/59; PULSE 71; RESP 16; TEMP 36.6; O2SAT 98
--- NOTE | 2024-08-03 16:11 | P.PN_ITS ---
Subjective Subjective Interval history: Narrative: 88-year-old woman under primary care of Dr. Rocio Harden was recently diagnosed with COVID infection and developed persistent weakness today where laboratory evaluation found a serum sodium of 123, with otherwise unremarkable laboratory testing including normal white blood count, detailed below. She was directed to the emergency department and admitted for observation given persistent ongoing weakness. She was initially seen in the emergency department on 07/23/2024 after ground level fall where she laid on the floor for 5 8 hours, at which time her serum sodium was 126, given IV fluids, with normal neuroimaging and discharged home. She was seen in the emergency department on 07/26/2024 when she was diagnosed with COVID and treated with Paxlovid. She is seen with her son Bryan and [id number] erlinda today. She states she is comfortable though has diffuse aches that she feels just her usual arthritis. She denies chest pain, shortness for breath, nausea, vomiting, diarrhea or rash. Interval history: Patient reports feeling persistently weak, continues to have intermittent knee pain, predominantly on the R. No chest pain or shortness of breath. Exam Vital Signs (past 8 hours): - 08/03/24 12:00 Temperature 98.5 F Pulse Rate 81 Respiratory Rate 12 Blood Pressure 123/60 Pulse Oximetry 99 Oxygen Flow Rate 0 Oxygen Delivery Method Room Air Oxygen Flow Rate 0 Narrative Exam Narrative: GENERAL: This is a well-nourished, well-developed [place] patient, in no apparent distress, appears fatigued. EYES: Pupils equal round and reactive. Extraocular motions intact. No scleral icterus. No injection or drainage. ENT: Mucous membranes pink and moist. NECK: Supple, nontender, no meningeal signs. CARDIOVASCULAR: Regular rate and rhythm without murmurs, gallops, or rubs. RESPIRATORY: Clear to auscultation. GASTROINTESTINAL: Abdomen soft, non-tender, nondistended. EXTREMITIES: No clubbing, cyanosis, or edema. MSK: Right greater than left knee mildly tender, minimal swelling. NEUROLOGIC: Alert, oriented, speech fluent, full upper and lower motor strength, no focal deficits evident. DERMATOLOGIC: No rashes or skin lesions. Objective Labs 08/02/24 06:33 08/03/24 04:35 Labs: Laboratory Results - last 24 hr 08/03/24 08/03/24 04:35 10:29 Sodium 125 L Potassium 4.2 Chloride 92 L Carbon Dioxide 25 BUN 17 Creatinine 0.67 Estimated GFR > 60 BUN/Creatinine Ratio 25.4 H Glucose 167 H Calcium 9.0 Magnesium 1.8 Urine Color Yellow Urine Appearance Cloudy Urine pH 7.5 Ur Specific [place] 1.015 Urine Protein 1+ H Urine Glucose (UA) Negative Urine Ketones 1+ H Urine Occult Blood Negative Urine Nitrate Positive H Urine Bilirubin Negative Urine Urobilinogen 0.2 Ur Leukocyte Esterase Negative Urine RBC None seen Urine WBC None seen Ur Squamous Epith Cells 1-5 /hpf Amorphous Sediment 3+ Urine Bacteria None seen Ur Culture Indicated? Specimen cultured Vol Urine Centrifuged 10ml (spun) Ur Random Sodium 206 H [facility] Social History household members: none Smoking Status: Never smoker alcohol intake: never Assessment & Plan Assessment & Plan narrative: 1. 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 - Urine sodium 206 today, urine osm pending. - Na down to 125 today - start 1L fluid restriction and start salt tabs 1g TID - consider nephrology for a -vaptan - this is likely SIADH due to recent COVID ifnection 2. Recent COVID-19 infection. - continue isolation - repeat COVID swab tomorrow with plan for SNF. 3. Weakness due to 1. And 2. Persistent. Continue physical therapy. 4. Recent rhabdomyolysis, resolved. 5. Bilateral knee pain, - unclear etiology, continue therapies and PT/OT - consider radiographs if hindering ability to work with therapies. 6. Possible asymptomatic bacteuria - patient denies urinary symptoms, UA was reflexed for culture but no WBC, RBC but + for nitrates. Follow up culture results. DVT prophylaxis: Subcutaneous Lovenox Code status: Full code. Reviewed on admission with her son Bryan who is her surrogate decision maker. Cares reviewed at bedside with son Bryan, [id number] Twyla and other son Remy. Dispo: inpatient status, need to see improvement in sodium prior to discharge with plan for SNF in 1-2 more days. Will repeat COVID testing tomorrow as this can change isolation procedures at next level of care. COVID-19 COVID-19 status: Positive Time-Based Coding :: [TOTAL MINUTES] spent with patient and on the chart (including review of chart, obtaining history, exam, reviewing outside data, placing orders, documenting exam and treatment plan, and counseling patient) on [DATE]. Quality VTE Deep Vein Thrombosis/Pulmonary Embolism Present on Admission: No
[2024-08-03 16:56] LABS: BUN Creatinine Ratio 26.7 (6-22); Blood Urea Nitrogen 16 mg/dL (7-17); Calcium 8.8 mg/dL (8.4-10.2); Carbon Dioxide 27 mmol/L (22-32); Chloride 92 mmol/L (98-107); Estimated Glomerular Filt Rate > 60 mL/min (>60); Glucose 121 mg/dL (80-110); HEMOLYSIS < 15 (0-50); Potassium 4.2 mmol/L (3.4-5.1); Sodium 124 mmol/L (137-145)
[2024-08-03 20:00] VITALS: BP 133/58; PULSE 68; RESP 18; TEMP 36.6; O2SAT 96
[2024-08-03] MEDS: SENNOSIDES 8.6 MG TABLET PO (20:58)
[2024-08-04 04:00] VITALS: BP 122/55; PULSE 77; RESP 17; TEMP 37.1; O2SAT 96
[2024-08-04 05:04] LABS: Add Manual Diff / Slide Review NO; Basophils Absolute Auto 0 /uL (0-100); Basophils Percent Auto 0.6 % (0-2); Eosinophils Absolute Auto 0 /uL (0-450); Eosinophils Percent Auto 0.7 % (2-4); Hematocrit 33.7 % (36-46); Hemoglobin 11.5 g/dL (12.0-16.0); Lymphocytes Absolute Auto 1300 /uL (1100-4500); Lymphocytes Percent Auto 19.8 % (25-40); Mean Corpuscular HGB Conc 34.2 % (30-36); Mean Corpuscular Hemoglobin 28.9 PG (26-34); Mean Corpuscular Volume 84.6 fL (80-100); Monocytes Absolute Auto 400 /uL (0-900); Monocytes Percent Auto 6.3 % (3-14); Neutrophils Absolute Auto 4800 /uL (1500-7000); Neutrophils Percent Auto 72.6 % (50-75); Platelet Count 302 X10^3/uL (150-400); Red Blood Cell Count 3.99 X10^6/uL (4.0-5.2); Red Cell Distribution Width 13.7 % (11.6-14.8); White Blood Cell Count 6.6 X10^3/uL (4.5-11.0)
[2024-08-04 05:25] LABS: Blood Urea Nitrogen 17 mg/dL (7-17); Calcium 9.2 mg/dL (8.4-10.2); Carbon Dioxide 24 mmol/L (22-32); Chloride 97 mmol/L (98-107); Estimated Glomerular Filt Rate > 60 mL/min (>60); Glucose 121 mg/dL (80-110); HEMOLYSIS < 15 (0-50); Magnesium 1.9 mg/dL (1.6-2.3); Potassium 4.3 mmol/L (3.4-5.1); Sodium 129 mmol/L (137-145)
[2024-08-04] MEDS: ENOXAPARIN 40 MG/0.4 ML SYRINGE SUBCUT (09:18)
[2024-08-04] MEDS: lisinopriL 20 MG TABLET 40 MG PO (09:18)
[2024-08-04] MEDS: SODIUM CHLORIDE 1,000 MG TABLET 1000 MG PO ×3 (09:18→21:44)
[2024-08-04] MEDS: polyethylene glycoL 3350 17 GM POWD.PACK PO (09:18)
[2024-08-04] MEDS: dilTIAZem CD 180 MG CAP 360 MG PO (09:18)
--- NOTE | 2024-08-04 10:29 | PC.NURSE ---
Patient is sitting up in chair, she ate her breakfast and tolertated taking her po medication well. BS cta, patient is on room air. One person assist to ambulate with walker. Covid test obtained this morning.
[2024-08-04 12:00] VITALS: BP 151/77; PULSE 76; RESP 18; TEMP 36.8; O2SAT 95
[2024-08-04 12:07] LABS: COVID19 -Nasal RAPID POSITIVE (Negative)
[2024-08-04 13:39] LABS: Osmolality Urine 1093 mOsmol/kg (.)
--- NOTE | 2024-08-04 15:00 | PT.IPTN ---
Current Diagnoses Syndrome of inappropriate secretion of antidiuretic hormone (08/02/24) Physical Therapy Treatment Note M2 PT-IP Current Condition Start: 08/01/24 17:26 Freq: NEEDED Status: Active Protocol: Document 08/01/24 14:55 AB (Rec: 08/01/24 17:40 AB [id number]) Physical Therapy Current Condition Current Condition Evaluation Date 08/01/24 Treatment Diagnosis Covid; hyponatremia; difficulty in walking Onset Date 07/31/24 M3 PT-IP Subjective Start: 08/01/24 17:26 Freq: NEEDED Status: Active Protocol: Document 08/04/24 15:00 AB (Rec: 08/04/24 16:58 AB [id number]) Subjective Physical Therapy Visit Type Type Treatment Note Visit Start Time 15:00 Visit Stop Time 15:40 Number of TRANSMISSION OPERATOR Visits 0 Physical Therapy Visit Comments Patient Comments stated that she is tired M4 PT-IP Mobility and Gait Start: 08/01/24 17:26 Freq: NEEDED Status: Active Protocol: Document 08/04/24 15:00 AB (Rec: 08/04/24 16:58 AB [id number]) PT-Bed Mobility Assessment Supine to Sit Supine to Sit Maximum Assistance,1 Person Assistance,Head of Bed Elevated,Bedrails PT-Transfer Assessment Sit to and From Stand Sit to and from Stand Maximum Assistance,1 Person Assistance,Use of Upper Extremities Equipment Transfer Assistive Device Gait Belt,Front Wheeled Walker Orthotic/Prosthetic Devices or Brace: No Comments Mobility Comments pt in bed and agreed to get up but c/o feeling tired. completed supine to sit max A and cues. sit to stand max A and cues and ambulated towards the sink using FWW max A x 1 and max cues. pt able to maintain standing CGA while completing grooming. pt ambulated in room using FWW max A and cues ~ 25 ft. pt presents with shufffling gait and forward lean posture. cued to stand upright and increase LE elevation and step. pt requested to use the toilet and ambulated to the toilet using FWW max A and max cus. max A for controlled descent to the toilet. Left pt with OT. Gait Assessment Gait Gait Assistance Required: Maximum Assistance Distance (Feet) 25 Able to Maintain Weight Bearing Status Yes During Gait Assistive Devices Assistive Device Gait Belt,Front Wheeled Walker Orthotic/Prosthetic Devices or Brace: No Gait Deviations General Gait Pattern Decreased Stride Length, Decreased Feet Clearance, Flexed Trunk,Step-to Gait Factors Limiting Gait Function Factors Limiting Gait Function Decreased Activity Tolerance, Decreased Strength,Difficulty Following Directions,Limited Range of Motion,Poor Balance, Poor Safety Awareness M5 PT-IP Objective Assessments Start: 08/01/24 17:26 Freq: NEEDED Status: Active Protocol: Document 08/01/24 14:55 AB (Rec: 08/01/24 17:40 AB [id number]) Orientation Orientation/Cognition Level of Alertness Alert Orientation Name,Place,Situation Language Function Ability No Deficits Noted Safety Awareness Decreased Safety Awareness Memory Description No Deficits Noted Gross Range of Motion Lower Extremity ROM Assessment Within Functional Limits Strength Lower Extremity Strength Assessment Bilaterally Impaired Hip 4-/5 Knee 4-/5 Muscle Tone Muscle Tone WNL Yes M6 PT-IP Treatment Start: 08/01/24 17:26 Freq: NEEDED Status: Active Protocol: Document 08/04/24 15:00 AB (Rec: 08/04/24 16:58 AB [id number]) Physical Therapy Treatment Education Education Provided Safety M7 PT-IP Assessment and Plan Start: 08/01/24 17:26 Freq: NEEDED Status: Active Protocol: Document 08/04/24 15:00 AB (Rec: 08/04/24 16:58 AB [id number]) PT Summary Assessment and Plan Potential Rehabilitation Potential Fair Summary Impairments Pain,ROM,Strength,Balance, Coordination,Sensation,Tone, Cognition,Bed Mobility, Transfers,Gait,Activity Tolerance Progress Towards Goals Slow Progress due to Activity Tolerance,Slow Progress - Other Assessment Summary pt requiring max A and max cues with mobility using FWW. pt will require SNF rehab to improve mobility independence. Goals Bed Mobility Goal Independent Transfer Goal Standby Assistance,Front Wheeled Walker Gait Goal Standby Assistance,Front Wheel Walker Gait Distance 50 Other Goals improve bed mobility, transfers, ambulation using FWW ~ 150 ft mod I Days to Meet Goals 10 Frequency of Treatment Frequency Of Treatment Once a Day Treatment Plan Physical Therapy Treatment Plan Bed Mobility Training,Transfer Training,Gait Training, Therapeutic Exercise,Balance Retraining,Post Op Education, Discharge Planning,Hot or Cold Pack,Neuromuscular Re-ed, Coordination Retraining,Manual Therapy Precautions Other Precautions falls; Covid droplet precautions Recommendations To Nursing Amount of Assist Needed 2 Person Assist Discharge Recommendations PT Discharge Recommendations SNF Rehab Transportation Needs at Discharge Wheelchair/Cabulance
--- NOTE | 2024-08-04 15:27 | CM.DPNOTE ---
DCP note EMPLOYMENT CONSULTANT reviewed EMR Per provider, medically cleared to dc to SNF. Sodium improved, on room air. Per Chart, pt COVID pos again today. Per Paulina at , since COVID pos, cannot accept until 10 days post initial pos test (08/09) EMPLOYMENT CONSULTANT attempted to speak with [facility] x2 today, no vm option and no response as of 1530 Per Regina at [facility], can accept pt even with Pos COVID diagnosis. transport set up for 1300 tomorrow. EMPLOYMENT CONSULTANT met with son/LEONELIZABETH Adams in waiting room. reviewed DCP options. confirm preference is to dc to [facility] while continuing to set up LTC. will plan to [place] here with pt [place] and then go to [facility] to help pt set up ppwk. EMPLOYMENT CONSULTANT provided son with [facility] brochure. EMPLOYMENT CONSULTANT answered questions to best of ability. Per son Bryan, pt in agreement with plan and confirmed preference to dc to [facility] SNF [place]. EMPLOYMENT CONSULTANT did not meet with pt in room due to pos COVID diagnosis. EMPLOYMENT CONSULTANT placed OT eval and notified OT of new order, pt provider approval. EMPLOYMENT CONSULTANT emailed Paulina at to cancel referral. EMPLOYMENT CONSULTANT updated provider. in agreement with plan. P: dc tomorrow to [facility] at 1300 via facility transport. PASRR previously completed. CM team will alert TCM team at [place]. CM team will continue to follow closely for DCP coordination. DAVE Carrillo
--- NOTE | 2024-08-04 15:45 | OT.IP.EVAL ---
Current Diagnoses Syndrome of inappropriate secretion of antidiuretic hormone (08/02/24) Occupational Therapy Inpatient Evaluation/Re-Eval M1 PT/OT-IP Prior Functional Status Start: 08/01/24 17:26 Freq: NEEDED Status: Active Protocol: Document 08/04/24 15:46 [facility] (Rec: 08/04/24 16:01 [facility] [id number]) Medical Review Prior Functional Status Medical History Reviewed Yes Communication able to make needs known Mobility and Gait pt stated that she was modified independent with all mobilities and ambulation without AD during the day and uses a FWW at night; occasionally uses a SPC Activities of Daily Living and IADL's Pt states able to do ADL needs one week ago but has been getting progressively weaker. Social History Household Members none Living Arrangements House Number of Floors (Floors) One Floor Number of Stairs To Enter/Railing? no steps to enter Home Environment Standard Height Toilet,Walk in Shower Home Equipment Front Wheel Walker,Straight Cane,Hand Held Shower,Grab Bars Near Toilet,Grab Bars In Shower Additional Social History Comment pt lives alone and her grand daughter checked on her in the morning daily but will not be able to stay with her per pt M2 OT-IP Current Condition Start: 08/04/24 15:44 Freq: Status: Active Protocol: Document 08/04/24 15:46 [facility] (Rec: 08/04/24 16:01 [facility] [id number]) Occupational Therapy Current Condition Current Condition Evaluation Date 08/04/24 Treatment Diagnosis COVID+, UTI, hyponatremia M3 OT- IP Subjective and Pain Start: 08/04/24 15:44 Freq: Status: Active Protocol: Document 08/04/24 15:46 [facility] (Rec: 08/04/24 16:01 [facility] [id number]) OT- Subjective Occupational Therapy Visit Type Type Initial Evaluation Visit Start Time 15:00 Visit Stop Time 15:45 Occupational Therapy Visit Comments Patient Comments Pt agreed to get up even though she is tired. Patient/Caregiver Goals TO get better. OT Pain Assessment Pain When Pain Assessed At Rest Pain Present Pain Present Pain Reported Location Bilateral Knee Intensity 5 M4 OT- IP ADL's Start: 08/04/24 15:44 Freq: Status: Active Protocol: Document 08/04/24 15:46 [facility] (Rec: 08/04/24 16:01 [facility] [id number]) OT [id number] Comments OT Self-Feeding Comments Not at meal time. OT ADL-Grooming General Evaluation Grooming Ability Minimal Assistance Areas Needing Assistance Combing/Brushing Hair Comments OT Grooming Comments Assist to comb the back of her hair and increased time while standing with FWW at the sink . OT ADL-Oral Care General Eval Oral Care Ability Independent OT ADL-Dressing General Eval Lower Body Dressing Ability Maximum Assistance Areas Needing Assistance Underpants/Brief,Socks OT ADL-Toileting General Evaluation Toileting Ability Moderate Assistance,Maximum Assistance Areas Needing Assistance Manage Clothing Comments OT Toileting Comments Pt having to use grab bar and FWW for balance while therapist assisted for brief management needs. OT ADL-Bathing Comments OT Bathing Comments NOt performed. M5 OT- IP IADL's Start: 08/04/24 15:44 Freq: Status: Active Protocol: Document 08/04/24 15:46 [facility] (Rec: 08/04/24 16:01 [facility] [id number]) OT-Instrumental Activities of Daily Living Deficits IADL Deficits Identified Deficits Home Safety Awareness Awareness of Need for Assistance at Home Good Awareness Ability to Problem Solve Emergency Able to Problem Solve Situations Home Safety Comments Pt able to states good accuracy for home safety questions. Medication Management Medication Management Comments Pt will benefit from assist. Money Management Money Management Comments Pt will benefit from assist. Meal Preparation Meal Preparation Comments Pt will benefit from assist. M6 OT- IP Functional Cognition Start: 08/04/24 15:44 Freq: Status: Active Protocol: Document 08/04/24 15:46 [facility] (Rec: 08/04/24 16:01 [facility] [id number]) Cognitive Factors Limiting Selfcare Function Cognitive Ability Level of Alertness Alert,Drowsy Patient Orientation Name,Place,Situation Attention Span Ability Capable of Focused Attention, Capable of Sustained Attention Ability to Follow Commands Able to Follow One Step Commands with Increased Time, Able to Follow One Step Commands with Repetition Cognitive Comments Cognitive Assessment Comments Increased time to process and follow commands. Pt not able to think of the word elbow, however Malaysian is her primary language. Pt able to request for pain medications- nursing notified . M7 OT- IP Mobility and Balance Start: 08/04/24 15:44 Freq: Status: Active Protocol: Document 08/04/24 15:46 [facility] (Rec: 08/04/24 16:01 [facility] [id number]) OT- Bed Mobility Assessment Supine to Sit Supine to Sit Assist Maximum Assistance Sit to Supine Sit to Supine Assist Total Assistance Scooting Scooting to Edge of Bed Maximum Assistance OT-Transfer Assessment Sit to and From Stand Sit to and from Stand Moderate Assistance,1 Person Assistance,2 Person Assistance Transfers Transfer Ability Moderate Assistance,1 Person Assistance,2 Person Assistance Technique Transfer Destination Bed,Toilet Transfer Technique Stand Step Pivot Devices Transfer Assistive Devices Gait Belt,Front Wheeled Walker Comments Mobility Comments MAXA to help get her trunk upright and to the edge of the bed. Pt is very stiff. MODA X 2 to stand to the FWW and assist for balance, cues to take bigger steps, and to help guide the FWW. After use of the toilet, pt needing MODAX1 with FWW. At this time 2 person for safety for mobility with the FWW. OT- Balance Assessment Sitting Balance and Reactions Static Sitting Balance Ability Fair Dynamic Sitting Balance Ability Fair Standing Balance and Reactions Static Standing Balance Ability Poor Dynamic Standing Balance Ability Poor Comments Other Balance Tests/Deviations/Treatment Pt having to use her hands on : the sink for balance. Pt not able to M8 OT- IP Objective Assessments Start: 08/04/24 15:44 Freq: Status: Active Protocol: Document 08/04/24 15:46 [facility] (Rec: 08/04/24 16:01 [facility] [id number]) OT Gross Range of Motion Upper Extremity Range of Motion ROM Impairments Grossly WFL OT Strength Comments Strength Comments 4-/5 to 4/5 for BUE OT- Coordination Assessment Upper Extremity Finger to Nose Test Within Functional Limits M9 OT- IP Assessment and Plan Start: 08/04/24 15:44 Freq: Status: Active Protocol: Document 08/04/24 15:46 [facility] (Rec: 08/04/24 16:01 [facility] [id number]) OT Summary Assessment and Plan Potential Rehabilitation Potential Good Analytic Complexity at Evaluation Moderate Summary OT Impairments Pain,Range of Motion,Strength, Balance,Functional Cognition, Functional Mobility,Self- Feeding,Grooming,Dressing, Toileting,Bathing,Toilet Transfers,Shower Transfers, Activity Tolerance Progress Towards Goals Slow Progress due to Pain,Slow Progress due to Medical Issues,Slow Progress due to Activity Tolerance,Slow Progress due to Cognition Assessment Summary Pt MOD complexity and main barriers are pain, decreased balance, increased time to process and initiate movements , and now needing 1-2 person assist for ADL and mobility needs. Pt will benefit from skilled rehab to maximize level of independence and afterwards will benefit from assist at home. Goals Self-Feeding Goal Independent Grooming Goal Independent Dressing Goal Standby Assistance Toileting Goal Standby Assistance Bathing Goal Minimal Assistance Toilet Transfer Goal Standby Assistance Shower Transfer Goal Minimal Assistance Days to Meet Goals 20 Frequency of Treatment Other frequency 3-5x/week Treatment Plan OT Treatment Plan ADL Training,Functional Cognition Training,Functional Mobility,Patient/Family Education,Discharge Planning Other Treatment Recommendations and Next LB dressing Treatment Focus Discharge Recommendations OT Discharge Recommendations SNF Rehab Transportation Needs at Discharge Private Vehicle,Wheelchair/ Cabulance
--- NOTE | 2024-08-04 16:09 | P.PN_ITS ---
Subjective Subjective Interval history: Narrative: 88-year-old woman under primary care of Dr. Rocio Harden was recently diagnosed with COVID infection and developed persistent weakness today where laboratory evaluation found a serum sodium of 123, with otherwise unremarkable laboratory testing including normal white blood count, detailed below. She was directed to the emergency department and admitted for observation given persistent ongoing weakness. She was initially seen in the emergency department on 07/23/2024 after ground level fall where she laid on the floor for 5 8 hours, at which time her serum sodium was 126, given IV fluids, with normal neuroimaging and discharged home. She was seen in the emergency department on 07/26/2024 when she was diagnosed with COVID and treated with Paxlovid. She is seen with her son Bryan and [id number] erlinda today. She states she is comfortable though has diffuse aches that she feels just her usual arthritis. She denies chest pain, shortness for breath, nausea, vomiting, diarrhea or rash. Interval history: Patient reports feeling persistently weak but improving today and sodium is up to 129. continues to have intermittent knee pain, predominantly on the R. No chest pain or shortness of breath. Exam Vital Signs (past 8 hours): - 08/04/24 12:00 Temperature 98.3 F Pulse Rate 76 Respiratory Rate 18 Blood Pressure 151/77 H Pulse Oximetry 95 Oxygen Flow Rate 0 Oxygen Delivery Method Room Air Oxygen Flow Rate 0 Narrative Exam Narrative: GENERAL: This is a well-nourished, well-developed [place] patient, in no apparent distress, appears much less fatigued today. EYES: Pupils equal round and reactive. Extraocular motions intact. No scleral icterus. No injection or drainage. ENT: Mucous membranes pink and moist. NECK: Supple, nontender, no meningeal signs. CARDIOVASCULAR: Regular rate and rhythm without murmurs, gallops, or rubs. RESPIRATORY: Clear to auscultation. GASTROINTESTINAL: Abdomen soft, non-tender, nondistended. EXTREMITIES: No clubbing, cyanosis, or edema. MSK: Right greater than left knee mildly tender, minimal swelling. NEUROLOGIC: Alert, oriented, speech fluent, full upper and lower motor strength, no focal deficits evident. DERMATOLOGIC: No rashes or skin lesions. Objective Labs 08/04/24 04:48 08/04/24 04:48 Labs: Laboratory Results - last 24 hr 08/03/24 08/03/24 08/04/24 10:29 16:23 04:48 WBC 6.6 RBC 3.99 L Hgb 11.5 L Hct 33.7 L MCV 84.6 MCH 28.9 MCHC 34.2 RDW 13.7 Plt Count 302 Neut % (Auto) 72.6 Lymph % (Auto) 19.8 L [place] % (Auto) 6.3 Eos % (Auto) 0.7 L Baso % (Auto) 0.6 Neut # (Auto) 4800 Lymph # (Auto) 1300 [place] # (Auto) 400 Eos # (Auto) 0 Baso # (Auto) 0 Sodium 124 L 129 L Potassium 4.2 4.3 Chloride 92 L 97 L Carbon Dioxide 27 24 BUN 16 17 Creatinine 0.60 0.63 Estimated GFR > 60 > 60 BUN/Creatinine Ratio 26.7 H 27.0 H Glucose 121 H 121 H Calcium 8.8 9.2 Magnesium 1.9 Urine Osmolality 1093 SARS-CoV-2 (PCR) 08/04/24 09:26 WBC RBC Hgb Hct MCV MCH MCHC RDW Plt Count Neut % (Auto) Lymph % (Auto) [place] % (Auto) Eos % (Auto) Baso % (Auto) Neut # (Auto) Lymph # (Auto) [place] # (Auto) Eos # (Auto) Baso # (Auto) Sodium Potassium Chloride Carbon Dioxide BUN Creatinine Estimated GFR BUN/Creatinine Ratio Glucose Calcium Magnesium Urine Osmolality SARS-CoV-2 (PCR) Positive H [facility] Social History household members: none Smoking Status: Never smoker alcohol intake: never Assessment & Plan Assessment & Plan narrative: 1. 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 - Urine sodium 206 on 08/03. urine osm pending. - Na down to 125, improving after starting salt tabs and fluid restriction to 129 today. - Continue 1L fluid restriction and start salt tabs 1g TID - consider nephrology for a -vaptan if worsens but improved today. - this is likely SIADH due to recent COVID ifnection 2. Recent COVID-19 infection. - continue isolation - repeat covid swab 2/4 positive. 3. Weakness due to 1. And 2. Persistent. Continue physical therapy. 4. Recent rhabdomyolysis, resolved. 5. Bilateral knee pain, - unclear etiology, continue therapies and PT/OT. Intermittent and no joint tenderness on exam. May be arthritis, recommend continued therapies and outpatient evaluation. 6. Possible asymptomatic bacteuria - patient denies urinary symptoms, UA was reflexed for culture but no WBC, RBC but + for nitrates. Culture with E. coli. Will not treat given lack of symptoms at this time. DVT prophylaxis: Subcutaneous Lovenox Code status: Full code. Reviewed on admission with her son Bryan who is her surrogate decision maker. Cares reviewed at bedside with son Bryan, [id number] Twyla and other son Remy. Dispo: inpatient status, would like to see sodium continue to improve tomorrow above 130. Plan for SNF, [facility], tomorrow. COVID-19 COVID-19 status: Positive Time-Based Coding :: [TOTAL MINUTES] spent with patient and on the chart (including review of chart, obtaining history, exam, reviewing outside data, placing orders, documenting exam and treatment plan, and counseling patient) on [DATE]. Quality VTE Deep Vein Thrombosis/Pulmonary Embolism Present on Admission: No
[2024-08-04] MEDS: ACETAMINOPHEN 325 MG TABLET 650 MG PO (16:18)
[2024-08-04 20:00] VITALS: BP 134/68; PULSE 69; RESP 17; TEMP 37; O2SAT 98
[2024-08-05] MEDS: BISACODYL 10 MG SUPP PR (01:06)
[2024-08-05 04:00] VITALS: BP 147/71; PULSE 77; RESP 18; TEMP 36.6; O2SAT 97
[2024-08-05 05:22] LABS: Add Manual Diff / Slide Review NO; Basophils Absolute Auto 0 /uL (0-100); Basophils Percent Auto 0.5 % (0-2); Eosinophils Absolute Auto 0 /uL (0-450); Eosinophils Percent Auto 0.7 % (2-4); Hematocrit 34.9 % (36-46); Hemoglobin 11.9 g/dL (12.0-16.0); Lymphocytes Absolute Auto 800 /uL (1100-4500); Lymphocytes Percent Auto 14.7 % (25-40); Mean Corpuscular Hemoglobin 28.9 PG (26-34); Monocytes Absolute Auto 400 /uL (0-900); Monocytes Percent Auto 7.1 % (3-14); Neutrophils Absolute Auto 4300 /uL (1500-7000); Platelet Count 358 X10^3/uL (150-400); Red Cell Distribution Width 13.6 % (11.6-14.8); White Blood Cell Count 5.6 X10^3/uL (4.5-11.0)
[2024-08-05 05:43] LABS: BUN Creatinine Ratio 25.9 (6-22); Blood Urea Nitrogen 15 mg/dL (7-17); Calcium 9.1 mg/dL (8.4-10.2); Carbon Dioxide 25 mmol/L (22-32); Chloride 94 mmol/L (98-107); Estimated Glomerular Filt Rate > 60 mL/min (>60); Glucose 110 mg/dL (80-110); HEMOLYSIS < 15 (0-50); Magnesium 1.9 mg/dL (1.6-2.3); Potassium 4.4 mmol/L (3.4-5.1); Sodium 127 mmol/L (137-145)
[2024-08-05 07:15] VITALS: BP 146/60; PULSE 88; RESP 19; TEMP 36.8; O2SAT 98
[2024-08-05 09:37] VITALS: BP 147/71; PULSE 77
[2024-08-05] MEDS: ENOXAPARIN 40 MG/0.4 ML SYRINGE SUBCUT (09:37)
[2024-08-05] MEDS: polyethylene glycoL 3350 17 GM POWD.PACK PO (09:37)
[2024-08-05] MEDS: SODIUM CHLORIDE 1,000 MG TABLET 1000 MG PO (09:37)
[2024-08-05] MEDS: lisinopriL 20 MG TABLET 40 MG PO (09:37)
[2024-08-05] MEDS: dilTIAZem CD 180 MG CAP 360 MG PO (09:37)
--- NOTE | 2024-08-05 09:37 | PM.DS.1 ---
History of Present Illness History of Present Illness Date Patient Seen: 08/05/24 Time Patient Seen: 18:20 Date of Onset of Symptoms: 07/31/24 Chief complaint: weakness, confusion Narrative: Per admitting provider, 88-year-old woman under primary care of Dr. Rocio Harden was recently diagnosed with COVID infection and developed persistent weakness today where laboratory evaluation found a serum sodium of 123, with otherwise unremarkable laboratory testing including normal white blood count, detailed below. She was directed to the emergency department and admitted for observation given persistent ongoing weakness. She was initially seen in the emergency department on 07/23/2024 after ground level fall where she laid on the floor for 5 8 hours, at which time her serum sodium was 126, given IV fluids, with normal neuroimaging and discharged home. She was seen in the emergency department on 07/26/2024 when she was diagnosed with COVID and treated with Paxlovid. She is seen with her son Bryan and [id number] erlinda today. She states she is comfortable though has diffuse aches that she feels just her usual arthritis. She denies chest pain, shortness for breath, nausea, vomiting, diarrhea or rash. Discharge Providers Provider Date of admission: 08/02/24 10:39 Discharge Date: 08/05/24 Primary care physician: Rocio Harden DO Consults: 08/01/24 10:34 Consult to Physical Therapy Evaluate & Treat Comment: Physician Instructions: Evaluate and Treat 08/04/24 11:59 Consult to Occupational Therapy Evaluate & Treat Comment: Physician Instructions: Evaluate and treat Discharge provider: Asif Gracia DO Summary Hospital Course Discharge Diagnosis: 1. 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 - Urine sodium 206 on 08/03. urine osm pending. 2. Active COVID-19 infection. 3. Weakness due to 1. And 2. Persistent. 4. Recent rhabdomyolysis, resolved. 5. Bilateral knee pain, 6. Possible asymptomatic bacteuria 7. HTN Hospital Course: This is an 88 year old female with PMH of HTN who presented with weakness after recent COVID 19 infection found to have hyponatremia with a sodium of 123. Her sodium improved initially, but started to trend down again. Urine sodium was 206, consistent with an SIADH after covid. She was started on salt tablets and fluid restriction with improvement in her weakness and sodium levels above 125. She was seen by PT/OT and recommended for SNF where she was transferred on 08/05. Recommend repeat labs in a couple of days to continue to follow sodium level with fluid restriction and salt tabs. Should she develop worsening sodium despite this she should start on a -vaptan in consultation with nephrology. Recommend outpatient evaluation and continued therapy for her bilateral knee pain. Time Spent with Patient Time spent: Greater than 30 minutes Exam Vital Signs (past 8 hours): - 08/05/24 04:00 Temperature 97.9 F Pulse Rate 77 Respiratory Rate 18 Blood Pressure 147/71 H Pulse Oximetry 97 Oxygen Flow Rate 0 Oxygen Delivery Method Room Air Oxygen Flow Rate 0 Narrative Exam Narrative: GENERAL: This is a well-nourished, well-developed Bengali patient, in no apparent distress, appears much less fatigued today. EYES: Pupils equal round and reactive. Extraocular motions intact. No scleral icterus. No injection or drainage. ENT: Mucous membranes pink and moist. NECK: Supple, nontender, no meningeal signs. CARDIOVASCULAR: Regular rate and rhythm without murmurs, gallops, or rubs. RESPIRATORY: Clear to auscultation. GASTROINTESTINAL: Abdomen soft, non-tender, nondistended. EXTREMITIES: No clubbing, cyanosis, or edema. MSK: Right greater than left knee mildly tender, minimal swelling. NEUROLOGIC: Alert, oriented, speech fluent, full upper and lower motor strength, no focal deficits evident. DERMATOLOGIC: No rashes or skin lesions. Objective Labs 08/05/24 04:53 08/05/24 04:53 Labs: Laboratory Results - last 24 hr 08/03/24 08/04/24 08/05/24 10:29 09:26 04:53 WBC 5.6 RBC 4.10 Hgb 11.9 L Hct 34.9 L MCV 85.0 MCH 28.9 MCHC 34.0 RDW 13.6 Plt Count 358 Neut % (Auto) 77.0 H Lymph % (Auto) 14.7 L [place] % (Auto) 7.1 Eos % (Auto) 0.7 L Baso % (Auto) 0.5 Neut # (Auto) 4300 Lymph # (Auto) 800 L [place] # (Auto) 400 Eos # (Auto) 0 Baso # (Auto) 0 Sodium 127 L Potassium 4.4 Chloride 94 L Carbon Dioxide 25 BUN 15 Creatinine 0.58 Estimated GFR > 60 BUN/Creatinine Ratio 25.9 H Glucose 110 Calcium 9.1 Magnesium 1.9 Urine Osmolality 1093 SARS-CoV-2 (PCR) Positive H [facility] Social History household members: none Smoking Status: Never smoker alcohol intake: never Discharge Plan Discharge Plan Patient Disposition: SNF Transfer to: [facility] Provider Discharge Comment: 88 year old female with recent COVID infection who was admitted for weakness due to COVID and hyponatremia. Hyponatremia is due to an SIADH. Recommend repeat BMP in approx. 1 week to recheck sodium level. Recommend 1L fluid restriction and salt tabs. This has maintained her sodium level around 128 range with improvement. Discharge orders & Medications Prescriptions: New sodium chloride 1,000 mg Tablet,Soluble 1,000 mg PO TID 30 Days Qty: 90 0RF Continued diltiazem HCl 360 mg capsule,extended release 24hr 360 mg PO DAILY lisinopril 40 mg Tablet 40 mg PO DAILY Discontinued Paxlovid 300 mg (150 mg x 2)-100 mg tablets,dose pack 1 ea PO BID Patient Comments: [NO ORIGINAL SIG] Rx Instructions: completed 9 out of 10 doses Follow up/Referrals: Rocio Harden DO [Primary Care Provider] - Discharge Health Status Precautions: Droplet Diet/Activity/Treatments Diet: Diet as Tolerated Liquid consistency: Normal/Thin Food texture: Regular Diet comment: 1L fluid restriction Activity: As tolerated, no restrictions. Special Rehabilitation Services Reason for rehabilitation: Recovery r/t decondition Rehab type: Physical therapy and Occupational therapy Visit Report/Discharge Packet Stand Alone Forms: Patient Portal/API Discharge Data Primary Care Provider: Rocio Harden VTE Deep Vein Thrombosis/Pulmonary Embolism Present on Admission: No
--- NOTE | 2024-08-05 13:38 | CM.DPNOTE ---
DC Note Patient discharged to [facility] via facility van today as planned. JEAN Cardona cosmetic sales assistant, coordinated this discharge, all DC ppk sent to [place] in admissions. Reviewed this plan with son Bryan who remains agreeable. Provided DPOA/POA ppk per son's request. Family plans to eventually have patient's daughter DPOA instead of son Bryan. Plan: Discharge to [facility] today via facility van. SHAAN
--- NOTE | 2024-08-05 14:30 | PC.NURSE ---
Day shift: Discharge packet given to facility transport Hayes, including hard scripts. All belongings with patient. PIV removed prior to discharge. Attempted to call [facility] x2 to give RN report. Left VM. Also let transport Hayes know I was unable to get through to someone.
== END 2024-08-05 14:31 | DRG 643 ==
LOC: ED 15:56 → AC 16:17
PROVIDERS: Internal Medicine; Admitting Provider Internal Medicine; Emergency Provider Student in an Organized Health Care Education/Training Program; PCP Family Medicine; Referring Provider Student in an Organized Health Care Education/Training Program; Visit Provider Internal Medicine
DX: E22.2 Syndrome of inappropriate secretion of antidiuretic hormone (principal); U07.1 COVID-19; M62.82 Rhabdomyolysis; R53.1 Weakness; R41.0 Disorientation, unspecified; R26.89 Other abnormalities of gait and mobility; E86.0 Dehydration; M25.562 Pain in left knee; M25.561 Pain in right knee; R82.71 Bacteriuria; Z88.0 Allergy status to penicillin
CPT/HCPCS: 36415; 80048; 80053; 81001; 81003; 82550; 83605; 83690; 83735; 83880; 83935; 84145; 84300; 84443; 85025; 87077; 87086; 87186; 87635; 93005; 96361; 97163; 97166; 97530; 97535; 99284; 99285; G0378; A9270; J1650; J1885

== ENCOUNTER → 2024-09-14 13:26 | Outpatient (CLI) | payer MEDICARE, OTHER, SELFPAY ==
[2024-07-31 17:46] VITALS: BMI 21.0
[2024-09-14 14:35] LABS: Add Manual Diff / Slide Review NO; Basophils Absolute Auto 0 /uL (0-100); Basophils Percent Auto 0.2 % (0-2); Eosinophils Absolute Auto 0 /uL (0-450); Eosinophils Percent Auto 0.4 % (2-4); Hematocrit 36.2 % (36-46); Hemoglobin 12.4 g/dL (12.0-16.0); Lymphocytes Absolute Auto 1100 /uL (1100-4500); Lymphocytes Percent Auto 13.7 % (25-40); Mean Corpuscular HGB Conc 34.2 % (30-36); Mean Corpuscular Hemoglobin 29.9 PG (26-34); Mean Corpuscular Volume 87.3 fL (80-100); Monocytes Absolute Auto 400 /uL (0-900); Monocytes Percent Auto 4.4 % (3-14); Neutrophils Absolute Auto 6700 /uL (1500-7000); Neutrophils Percent Auto 81.3 % (50-75); Platelet Count 243 X10^3/uL (150-400); Red Blood Cell Count 4.14 X10^6/uL (4.0-5.2); Red Cell Distribution Width 15.2 % (11.6-14.8); White Blood Cell Count 8.2 X10^3/uL (4.5-11.0)
[2024-09-14 14:44] LABS: Alanine Aminotransferase 22 IU/L (<35); Albumin 4.3 g/dL (3.5-5.0); Albumin Globulin Ratio 1.4 (1.0-2.8); Alkaline Phosphatase 74 U/L (38-126); Aspartate Aminotransferase 24 IU/L (14-36); BUN Creatinine Ratio 23.8 (6-22); Bilirubin Total 0.7 mg/dL (0.2-1.3); Blood Urea Nitrogen 24 mg/dL (7-17); Calcium 9.6 mg/dL (8.4-10.2); Carbon Dioxide 26 mmol/L (22-32); Chloride 103 mmol/L (98-107); Estimated Glomerular Filt Rate 54 mL/min (>60); Globulin 3.1 g/dL (1.7-4.1); Glucose 102 mg/dL (80-110); HEMOLYSIS < 15 (0-50); Potassium 4.2 mmol/L (3.4-5.1); Sodium 138 mmol/L (137-145); Total Protein 7.4 g/dL (6.3-8.2)
== END ==
PROVIDERS: PCP Family Medicine; Referring Provider Family Medicine; Visit Provider Family Medicine
DX: R53.1 Weakness (principal); E87.1 Hypo-osmolality and hyponatremia; Z86.16 Personal history of COVID-19
CPT/HCPCS: 36415; 80053; 85025

== ENCOUNTER → 2024-09-21 11:23 | Outpatient (CLI) | payer MEDICARE, OTHER, SELFPAY ==
[2024-07-31 17:46] VITALS: BMI 21.0
--- NOTE | 2024-09-21 11:24 | DI.MRI.S_ITS ---
PROCEDURE: MR HEAD/BRAIN WO CON INDICATIONS: memory changes TECHNIQUE: Non-contrast axial T1 spin echo, axial T2 fast spin echo, sagittal and axial FLAIR, coronal T2 fast spin echo, axial gradient echo, axial diffusion and ADC through the brain. COMPARISON: [facility], CT, CT ANGIO HEAD AND NECK, 07/23/2024, 11:47. [facility], CT, CT HEAD/BRAIN WO CON, 07/23/2024, 11:47. FINDINGS: Image quality: Excellent. CSF spaces: Ventricles appear symmetric in size and shape. Basal cisterns are patent. No extra-axial fluid collections. Brain: No intracranial bleeds or mass effects. There is cerebral volume loss for age. There are periventricular and deep white matter chronic small vessel ischemic changes. Brainstem appears normal. Diffusion-weighted images show no acute infarct. No chronic ischemic insults. Normal intravascular flow voids are present. Skull and face: Calvarial bone marrow is normal in signal. Orbits are normal. Sinuses: Sinuses and mastoids are clear. IMPRESSION: 1. No acute process. No recent infarct. 2. Volume loss and small vessel ischemic disease. Dictated by: Wyatt Lomeli M.D. on 09/21/2024 at 12:15 Approved by: Wyatt Lomeli M.D. on 09/21/2024 at 12:16
== END ==
PROVIDERS: PCP Family Medicine; Referring Provider Family Medicine; Visit Provider Family Medicine
DX: R41.3 Other amnesia (principal); R53.1 Weakness; E87.1 Hypo-osmolality and hyponatremia; Z86.16 Personal history of COVID-19
CPT/HCPCS: 70551

== ENCOUNTER → 2025-01-15 11:50 | Outpatient (CLI) | payer MEDICARE, OTHER, SELFPAY ==
[2024-07-31 17:46] VITALS: BMI 21.0
[2025-01-15 13:04] LABS: Add Manual Diff / Slide Review NO; Hematocrit 36.2 % (36-46); Hemoglobin 12.5 g/dL (12.0-16.0); Lymphocytes Absolute Auto 1100 /uL (1100-4500); Mean Corpuscular HGB Conc 34.4 % (30-36); Mean Corpuscular Hemoglobin 29.3 PG (26-34); Mean Corpuscular Volume 85.1 fL (80-100); Platelet Count 235 X10^3/uL (150-400)
[2025-01-15 13:31] LABS: Blood Urea Nitrogen 22 mg/dL (7-17); Calcium 9.3 mg/dL (8.4-10.2); Carbon Dioxide 26 mmol/L (22-32); Chloride 97 mmol/L (98-107); Estimated Glomerular Filt Rate > 60 mL/min (>60); Glucose 102 mg/dL (70-99); HEMOLYSIS < 15 (0-50); Potassium 4.5 mmol/L (3.4-5.1); Sodium 131 mmol/L (137-145)
== END ==
PROVIDERS: PCP Family Medicine; Referring Provider Family Medicine; Visit Provider Family Medicine
DX: E87.8 Other disorders of electrolyte and fluid balance, not elsewhere classified (principal); R53.1 Weakness; R53.83 Other fatigue; Z74.09 Other reduced mobility
CPT/HCPCS: 36415; 80048; 85025

== ENCOUNTER → 2025-05-24 12:22 | Outpatient (CLI) | payer MEDICARE, OTHER, SELFPAY ==
[2024-07-31 17:46] VITALS: BMI 21.0
--- NOTE | 2025-05-24 12:30 | DI.ECHO.S_ITS ---
[facility]---------+ [facility] : : [id number] : [place] : : [id number] : : Phone: [phone] Echocardiogram Report + + :Name: ISAEL CENTENO Study Date: 05/24/2025 Height: 62 in : :[facility] ReadingLocation: Weight: 125 lb : : Gender: Female BSA: 1.6 m2 : :: 1935 Age: 89 yrs BP: 135/68 mmHg: :Reason For Study: SOB : :Ordering Physician: NINO, : :SHANTHI Performed By: Mariela Wilburn : :Referring: SHANTHI ONEILL : + + Interpretation Summary Normal sinus rhythm. Normal LV size and wall thickness. Normal wall motion and LV systolic function. Ejection fraction is 55-60%. Stage I diastolic dysfunction. Moderate left atrial enlargement; otherwise normal chamber sizes. Aortic valve leaflets are moderately thickened and calcified and demonstrate moderately reduced leaflet excursion. Based on continuous-wave Doppler, patient has mild aortic stenosis with peak velocity of 2.3 m/s and mean gradient of 11 mmHg. Moderate mitral annular calcification. Estimated PA systolic pressure is 30 mmHg assuming right atrial pressure of 3 mmHg. There is no prior echocardiogram available for comparison. Procedure: A two-dimensional transthoracic echocardiogram with color flow and Doppler was performed. The study quality was technically adequate. There is no prior echocardiogram noted for this patient. The heart rate ranged between 69-79 bpm during the study. Left Ventricle: The left ventricle is normal in size and wall thickness. The ejection fraction is estimated to be 55-60%. Grade I diastolic dysfunction with normal left atrial pressure. Right Ventricle: The right ventricle grossly appears normal in size with probable normal systolic function. Atria: The left atrium is moderately dilated. Right atrial size is normal. Chiari network (normal variant) is noted. The interatrial septum grossly appears intact with no obvious evidence for an atrial septal defect. Mitral Valve: The mitral valve leaflets appear mildly thickened. There is mild mitral annular calcification. There is trace mitral regurgitation. Aortic Valve: The aortic valve is trileaflet. The aortic valve is moderately calcified. The aortic valve area is 1.3 centimeters squared by planimetry. The calculated aortic valve area is 1.2 cm2. The peak aortic velocity is 2.3 m/sec. The aortic valve mean gradient is 11 mmHg. No aortic regurgitation is present. Tricuspid Valve: The tricuspid valve leaflets are thin and pliable. There is trace tricuspid regurgitation. The right ventricular systolic pressure is estimated to be at least 30 mmHg based on an estimated right atrial pressure of 3 mm Hg. Pulmonic Valve: The pulmonic valve is not well seen, but is grossly normal. There is trace pulmonic regurgitation. Great Vessels: The aortic root is normal size. The ascending aorta is normal in size. The aortic arch is normal in size. The IVC is of normal diameter and collapses greater than 50% with a sniff. This suggests a low right atrial pressure of 3 mm Hg. Pericardium/ Pleura There is no pericardial effusion. There is no pleural effusion. MMode/2D Measurements & Calculations LVIDd: 4.4 cm LVOT diam: 1.8 cm LVIDs: 2.1 cm Ao root diam: 2.9 cm FS: 51.8 % asc Aorta Diam: 3.1 cm EPSS: 0.46 cm Ao Arch Diam (Prox Trans): 2.1 cm IVSd: 0.78 cm LVPWd: 0.81 cm LV hay. diameter/BSA (cm/m^2): 2.8 LV sys. diameter/BSA (cm/m^2): 1.3 LA A2 area: 17.0 cm2 RA long axis: 4.6 cm LA A4 area: 25.7 cm2 RA area: 15.0 cm2 LA length (vol): 5.5 cm RA vol: 41.0 ml LA vol: 67.1 ml RA : 26.2 ml/m2 LA vol index: 42.9 ml/m2 IVC diam: 1.2 cm RVD1 (basal): 3.5 cm TAPSE: 3.1 cm Doppler Measurements & Calculations Ao V2 max: 227.4 cm/sec LVOT Max Shaan: 93.3 cm/sec Ao V2 mean: 159.0 cm/sec LV V1 max P.5 mmHg Ao max P.7 mmHg LV V1 VTI: 24.4 cm Ao mean P.3 mmHg JULIA(I,D): 1.2 cm2 Ao V2 VTI: 51.3 cm JULIA(V,D): 1.0 cm2 sev ratio: 0.48 JULIA indexed to BSA (cm^2/m^2): 0.77 MV E max shaan: 110.9 cm/sec TR max shaan: 260.3 cm/sec MV A max shaan: 139.5 cm/sec TR max P.1 mmHg MV E/A: 0.79 PA V2 max: 92.9 cm/sec Med Peak E' Shaan: 5.5 cm/sec PA V2 mean: 66.2 cm/sec E/E' med: 20.1 PA mean P.0 mmHg Lat Peak E' Shaan: 6.7 cm/sec PA pr(Accel): 19.9 mmHg E/E' lat: 16.5 E/e' average: 18.3 MV dec time: 0.33 sec SV(LVOT): 61.8 ml Electronically signed by: Rina Sanchez M.D. on Reading Physician:05/24/2025 03:16 PM
== END ==
PROVIDERS: PCP Family Medicine; Referring Provider Family Medicine; Visit Provider Family Medicine
DX: I95.9 Hypotension, unspecified (principal); R06.02 Shortness of breath; I34.81 Nonrheumatic mitral (valve) annulus calcification
CPT/HCPCS: 93246; 93306

== ENCOUNTER → 2025-05-24 13:57 | Outpatient (CLI) | payer MEDICARE, OTHER, SELFPAY ==
[2024-07-31 17:46] VITALS: BMI 21.0
== END ==
LOC: CAR 13:58
PROVIDERS: PCP Family Medicine; Referring Provider Family Medicine; Visit Provider Family Medicine
DX: R06.02 Shortness of breath (principal)
CPT/HCPCS: 93246